=== PATIENT | female | born 1945 | race Caucasian/White ===

== ENCOUNTER 2017-09-29 17:41 | Inpatient (IN) ==
--- NOTE | 2017-09-29 18:54 | Emergency Department Note ---
Disposition Clinical Impression: Cellulitis Qualifiers: Site of cellulitis: extremity Site of cellulitis of extremity: lower extremity Laterality: left Qualified Code(s): L03.116 - Cellulitis of left lower limb Disposition: Admitted As Inpatient Condition: Fair Forms: ED Satisfaction Letter Time of Disposition: 18:57 Extremity Problem HPI - General Chief complaint: ED Extremity Problem,Nontraumatic Stated complaint: Toe infection Time Seen by Provider: 09/29/17 18:48 Source: patient Mode of arrival: ambulatory Limitations: no limitations Nursing Notes Reviewed: Yes Vital Signs Reviewed: Yes - History of Present Illness HPI Narrative: 72-year-old who comes in today with an infection in her left great toe. The patient was seen by Dr. Pereira who actually drained it got cultures sent her here for IV antibiotics. Pt Subjective Complaint: extremity pain Onset (ago): day(s) Consistency: constant Injury Location: left, lower extremity Pain Scale: 3 Quality: aching Radiation: none Improves with: nothing Worsens with: weight bearing Associated symptoms: Reports: other (Fever) Context: other - Related Data Home Medications Medication Instructions Recorded Confirmed Furosemide [Lasix] 40 mg PO DAILY 10/17/16 09/29/17 Gabapentin [Neurontin] 400 mg PO TID 10/17/16 09/29/17 Losartan/HCTZ [Hyzaar 50-12.5 1 each PO DAILY 10/17/16 09/29/17 Tablet] Propranolol HCl [Inderal LA] 160 mg PO DAILY 10/17/16 09/29/17 metFORMIN [Glucophage] 500 mg PO TID 10/17/16 09/29/17 Aspirin Enteric Coated [Aspirin EC] 325 mg PO DAILY 09/29/17 09/29/17 CloNIDine Patch [Catapres-TTS] 0.2 mg TD QWEEK 09/29/17 09/29/17 Diclofenac Sodium [Voltaren] 2 gm TP TID 09/29/17 09/29/17 Estrogens,Esterified [Menest] 0.3 mg PO DAILY 09/29/17 09/29/17 Glimepiride [Amaryl] 1 mg PO DAILY 09/29/17 09/29/17 HYDROcodone/Acet 5/325 mg [[place] 1 tab PO DAILY 09/29/17 09/29/17 5-325 mg] HydrOXYzine Pamoate [Vistaril] 25 - 50 mg PO Q6H PRN 09/29/17 09/29/17 Indapamide [Lozol] 2.5 mg PO DAILY 09/29/17 09/29/17 Levothyroxine [Synthroid] 150 mcg PO QAM 09/29/17 09/29/17 Morphine Sulfate SR (12 HR) [MS 30 mg PO DAILY 09/29/17 09/29/17 Contin] Omeprazole [PriLOSEC] 40 mg PO DAILY 09/29/17 09/29/17 Simvastatin [Zocor] 40 mg PO HS 09/29/17 09/29/17 Allergies Allergy/AdvReac Type Severity Reaction Status Date / Time ciprofloxacin [From Cipro] Allergy Swelling Verified 08/31/17 10:12 of Lip/Tongue/Throat lisinopril Allergy Hallucinati Verified 08/31/17 10:12 ng All systems ED: reviewed and negative except as stated. Constitutional: Reports: fever. Denies: chills, weakness, weight change Eyes: Denies: eye pain, eye discharge, vision change ENT ED: Denies: ear pain, throat pain, dental pain, hearing loss, epistaxis, congestion, dysphagia Cardiovascular: Denies: chest pain, palpitations, dyspnea on exertion, edema, syncope Respiratory: Denies: cough, dyspnea, wheezes, hemoptysis, stridor Gastrointestinal: Denies: abdominal pain, nausea, vomiting, diarrhea, constipation, hematemesis, melena, hematochezia Genitourinary: Denies: dysuria, frequency, hematuria, discharge Musculoskeletal: Reports: arthralgia. Denies: back pain, neck pain, myalgia Integumentary: Denies: rash, abrasion, lesions Neurological: Denies: headache, weakness, numbness, paresthesias, confusion, abnormal gait, vertigo Psychiatric: Denies: anxiety, depression, suicidal thoughts, homicidal thoughts , auditory hallucinations, visual hallucinations Endocrine: Denies: fatigue Hematological/Lymphatic: Denies: easy bleeding, easy bruising Allergic/Immunologic: Denies: facial swelling, urticaria Past Medical History - Past Medical History Medical history: Reports: diabetes, hyperlipidemia, hypertension, thyroid disease Psychiatric history: Reports: no psych history - Social History Smoking Status: Never smoker Smokeless Tobacco Status: No Alcohol use: Reports: none Drug use: Reports: none Physical Exam - General Limitations: no limitations General appearance: alert - Head Head exam: atraumatic, normocephalic, normal inspection - Eye Eye exam: Present: normal appearance, PERRL, EOMI - ENT ENT exam: normal exam, normal oropharynx, mucous membranes moist - Neck Neck exam: Present: normal inspection, full ROM, trachea midline - Chest Chest inspection: Present: normal inspection, symmetric chest wall rise - Respiratory Respiratory exam: Present: normal lung sounds bilaterally - Cardiovascular Cardiovascular exam: Present: regular rate, normal rhythm, normal heart sounds - Abdominal Exam Abdominal exam: Present: soft, Non-Tender. Absent: tenderness, distention, guarding, rebound, rigidity - Expanded Lower Extremity Exam Foot/toe exam: Present: tenderness, swelling, erythema Neurovascular/Tendon exam: Absent: pulse deficit - Back Exam Back exam: Present: normal inspection, full ROM. Absent: tenderness - Neurological Exam Neurological exam: Present: alert, oriented X3 - Psychiatric Psychiatric exam: Present: normal affect, normal mood - Skin Skin exam: Present: warm, dry, intact, normal color Course - Reevaluation(s) Reevaluation #1: 72-year-old who has diabetes came in with an infected left toe seen by podiatry who drained today and once in her admitted for antibiotics. Time: 18:55 - Consultations Consultation #1: Discussed with Dr. Pereira, admitted to the hospitalist give Zosyn. Time: 18:56 Consultation #2: Discussed with , admit. Time: 19:19 Consultation #3: Discussed of Zosyn dosing in light of her renal insufficiency, they recommend a 3.375 g of Zosyn for initial dose Time: 20:04 Vital Signs Temperature 100.2 F H 09/29/17 17:56 Pulse Rate 78 09/29/17 17:56 Respiratory Rate 18 09/29/17 17:56 Blood Pressure 122/62 09/29/17 17:56 O2 Sat by Pulse Oximetry 94 09/29/17 17:56 Temperature 100.2 F H 09/29/17 17:56 Pulse Rate 78 09/29/17 17:56 Respiratory Rate 18 09/29/17 17:56 Blood Pressure 122/62 09/29/17 17:56 O2 Sat by Pulse Oximetry 94 09/29/17 17:56 Oxygen Delivery Oxygen Delivery Room Air Extremity Problem, Nontraumati - Lab Data Result diagrams: 09/29/17 18:59 09/29/17 18:59 Lab Results 09/29/17 09/29/17 09/29/17 Range/Units 18:59 18:59 18:59 WBC 6.0 (4.3-11.1) K/mcL RBC 4.21 (3.82-4.97) M/mcL Hgb 11.9 (11.5-15.4) g/dL Hct 36.5 (35.3-44.9) % MCV 86.7 (83.0-100.0) fL MCH 28.3 (28.0-33.3) pg MCHC 32.6 (31.6-35.5) g/dL RDW 14.1 (11.5-14.5) % Plt Count 299 (140-400) K/mcL MPV 9.5 (9.4-12.4) fL Immature Gran % 0.2 (0-4) % Seg Neutrophils % 92.3 % Lymphocytes % 5.3 % Monocytes % 2.2 % Eosinophils % 0.0 % Basophils % 0.0 % Neutrophils # 5.5 (1.6-8.9) K/mcL Lymphocytes # 0.3 L (0.6-4.6) K/mcL Monocytes # 0.1 (0.0-1.3) K/mcL Eosinophils # 0.0 (0.0-0.6) K/mcL Basophils # 0.0 (0.0-0.2) K/mcL ESR 38 H (0-15) mm/hr Sodium 134 L (136-145) mEq/L Potassium 2.8 L (3.5-5.1) mEq/L Chloride 91 L (98-107) mEq/L Carbon Dioxide 30 H (23-29) mEq/L BUN 26 H (8-23) mg/dL Creatinine 1.58 H (0.60-1.20) mg/dL Est GFR ( Amer) 39 L (> 60) Est GFR (Non-Af Amer) 32 L (> 60) BUN/Creatinine Ratio 16 (6-26) Glucose 135 H (70-105) mg/dL Calculated Osmolality 285 (280-300) Calcium 8.6 (8.6-10.3) mg/dL
[2017-09-29] MEDS ORDERED: Piperacillin/Tazobactam 3.375 GM in 0.9 % Sodium Chloride Mini Bag 100 ML IVPB ONE (18:56)
[2017-09-29 19:32] LABS: Hematocrit 36.5 % (35.3-44.9); Hemoglobin 11.9 g/dL (11.5-15.4); Immature Granulocytes % 0.2 % (0-4); Lymphocytes # 0.3 K/mcL (0.6-4.6); Lymphocytes % 5.3 %; Mean Corpuscular HGB Conc 32.6 g/dL (31.6-35.5); Mean Corpuscular Hemoglobin 28.3 pg (28.0-33.3); Mean Corpuscular Volume 86.7 fL (83.0-100.0); Mean Platelet Volume 9.5 fL (9.4-12.4); Monocytes # 0.1 K/mcL (0.0-1.3); Monocytes % 2.2 %; Neutrophils # 5.5 K/mcL (1.6-8.9); Platelet Count 299 K/mcL (140-400); Red Blood Count 4.21 M/mcL (3.82-4.97); Red Cell Distribution Width 14.1 % (11.5-14.5); Segmented Neutrophils % 92.3 %
[2017-09-29 19:53] LABS: Calcium 8.6 mg/dL (8.6-10.3); Potassium 2.8 mEq/L (3.5-5.1)
[2017-09-29] MEDS ORDERED: 0.9 % Sodium Chloride 1,000 ML ONE (20:51)
[2017-09-29] MEDS ORDERED: Naloxone 0.4 MG/ML INJ IVP PRN (22:17)
[2017-09-29] MEDS ORDERED: Dextrose Gel 15 GM/37.5 ML TUBE PO PRN ×2 (22:23)
[2017-09-29] MEDS ORDERED: *HR* Dextrose 50 % in Water (Syg) 50 ML SYRINGE IVP PRN (22:23)
[2017-09-29] MEDS ORDERED: D5% in Water 1,000 ML IVC PRN (22:23)
--- NOTE | 2017-09-29 22:36 | Internal Med History&Physical ---
Date of Encounter: 09/29/17 Time of Encounter: 22:32 Internal Medicine - H&P: HPI Chief complaint: left great toe cellulitis. Admitted From: Emergency Dept Plans for Post Hospital Care: Home History of present illness: Ms. Jin is a 72 year old female who is a background history of for diabetes mellitus, hypertension, dyslipidemia, diabetic foot ulcer which is present for more than 2 years. Patient was evaluated by different laboratory courier and finally came to this health system with Dr. Pereira for further evaluation. She was evaluated by Dr. Pereira this afternoon and it was noted that her ulcer was persistently getting worse in terms of a reddish, serosanguineous discharge. Cultures were taken at [facility] and patient was sent to emergency room for inpatient admission for intravenous antibiotics. Patient complains that she has difficulty in walking with the wound on her left great toe which is progressively getting worse. Patient was also complaining of ongoing subjective fevers. Patient also complains that she has sharp pains which are bothering her for the past 3-4 days. Workup in the emergency room: Patient was evaluated in the emergency room. Basic labs were drawn. Her her vitals initially were within acceptable range but it was noted that patient was a hypotensive. Her blood pressure was 84/52. Patient received IV antibiotics/IV fluids. Reason for admission: Possible septic shock (fever, hypotension, target organ damage: Elevated creatinine, source for sepsis: Left foot ulcer) which responded to intravenous fluids/antibiotics. Past Med Surg Social Fam HX - Past Medical History Medical history: diabetes, hyperlipidemia, hypertension, thyroid disease Psychiatric history: no psych history - Past Surgical History Surgical History: orthopedic, other, other (Multiple surgeries on her left great toe.) - Social History Smoking Status: Never smoker Smokeless Tobacco Status: No Alcohol use: none Drug use: none Internal Medicine - H&P: Meds Furosemide [Lasix] 40 mg PO DAILY 10/17/16 [History] Gabapentin [Neurontin] 400 mg PO TID 10/17/16 [History] Losartan/HCTZ [Hyzaar 50-12.5 Tablet] 1 each PO DAILY 10/17/16 [History] Propranolol HCl [Inderal LA] 160 mg PO DAILY 10/17/16 [History] metFORMIN [Glucophage] 500 mg PO TID 10/17/16 [History] Aspirin Enteric Coated [Aspirin EC] 325 mg PO DAILY 09/29/17 [History] CloNIDine Patch [Catapres-TTS] 0.2 mg TD QWEEK 09/29/17 [History] Diclofenac Sodium [Voltaren] 2 gm TP TID 09/29/17 [History] Estrogens,Esterified [Menest] 0.3 mg PO DAILY 09/29/17 [History] Glimepiride [Amaryl] 1 mg PO DAILY 09/29/17 [History] HYDROcodone/Acet 5/325 mg [[place] 5-325 mg] 1 tab PO DAILY 09/29/17 [History] HydrOXYzine Pamoate [Vistaril] 25 - 50 mg PO Q6H PRN 09/29/17 [History] Indapamide [Lozol] 2.5 mg PO DAILY 09/29/17 [History] Levothyroxine [Synthroid] 150 mcg PO QAM 09/29/17 [History] Morphine Sulfate SR (12 HR) [MS Contin] 30 mg PO DAILY 09/29/17 [History] Omeprazole [PriLOSEC] 40 mg PO DAILY 09/29/17 [History] Simvastatin [Zocor] 40 mg PO HS 09/29/17 [History] 3 Allergy/AdvReac Type Severity Reaction Status Date / Time ciprofloxacin [From Cipro] Allergy Swelling Verified 08/31/17 10:12 of Lip/Tongue/Throat lisinopril Allergy Hallucinati Verified 08/31/17 10:12 ng All Systems PM: A 10-system review of systems was performed and is negative for pertinent findings except as documented above in the HPI. - Constitutional Constitutional: no chills, no fever(s), no night sweats - EENT Eyes: no change in vision, no discharge, no pain, no photophobia Ears: no ear discharge, no ear pain, no tinnitus Nose, mouth and throat: no dysphagia, no nasal discharge, no neck pain, no sore throat - Cardiovascular Cardiovascular ROS IM: no chest pain, no diaphoresis, no dyspnea, no lightheadedness, no palpitations, no syncope - Respiratory Respiratory: no cough, no dyspnea, no wheezing, no excessive phlegm production - Gastrointestinal Gastrointestinal: no abdominal pain, no diarrhea, no hematemesis, no hematochezia, no melena, no nausea, no vomiting - Genitourinary Genitourinary: no change in urinary stream, no dysuria, no flank pain, no hematuria - Musculoskeletal Musculoskeletal ROS IM: no numbness, no tingling Additional comments: Left foot ulcer - Integumentary Integumentary IM: no rash, no unusual bruising - Neurological Neurological ROS: no confusion, no convulsions, no focal weakness, no numbness, no tingling, no tremor(s) - Hematologic/Lymphatic Hematologic/Lymphatic: no easy bruising - Constitutional Vitals: Temp Pulse Resp BP Pulse Ox 98.3 F 71 12 104/57 93 09/29/17 21:12 09/29/17 21:47 09/29/17 21:47 09/29/17 21:47 09/29/17 21:47 General appearance: Present: A&O X 3, pleasant, no acute distress, answers questions appropriately - Head Head exam: Present: atraumatic, normocephalic - Eye Eye exam: Present: PERRL, conjuntiva pink, sclera anicteric Pupils: Present: PERRL - Neck Neck exam general surgery: Present: supple, trachea midline. Absent: lymphadenopathy - Respiratory Respiratory exam: Present: CTAB. Absent: accessory muscle use, rales, rhonchi, wheezes - Cardiovascular Cardiovascular exam: Present: RRR, +S1, +S2. Absent: diastolic murmur, gallop, rubs, systolic murmur - GI/Abdominal GI/Abdominal exam: Present: normal bowel sounds, soft, no peritoneal signs. Absent: distended, tenderness - Extremities Exam Extremities exam: Present: warm, radial pulses palpable and symmetrical. Absent : calf tenderness, cyanotic, pedal edema Additional comments: Left great toe ulcer which is well wrapped by laboratory courier. - Neurological Exam Neurological exam: Present: CN II-XII intact, oriented X3, no focal deficits. Absent: pronater drift, facial droop, speech deficit - Skin Skin exam: Present: dry, intact Internal Med - H&P Results - Labs CBC & Chem 7: 09/29/17 18:59 09/29/17 18:59 - Assessment and plan (1) Severe sepsis Current Visit: Yes Status: Acute Assessment and plan: Severe sepsis/septic shock: Possible source: Left great toe ulcer Multiple culture wound/blood: Done Lactic acid: Stat ordered from the inpatient unit and time lactic acid will be followed. Antibiotics: Vancomycin renally adjusted by pharmacy/Zosyn as per podiatry. Response to fluids/antibiotics: Noted that patient's blood pressure was 84/52 at 8:53 PM. I rechecked at around 945 and it was 104/57. Plan: Admit as inpatient. Continue IV fluids/antibiotics. Possible surgery tomorrow I personally spoke with Dr. Pereira and informed him all above. I examined this patient in 3 a 43 along with patient's nurse. I have discussed plan with the patient. Patient verbalized understanding of plan of care. (2) Cellulitis Current Visit: Yes Status: Acute Assessment and plan: Left great foot cellulitis. Previously wound culture positive for MRSA. We will start patient on vancomycin renally adjusted dose by pharmacy. Qualifiers: Site of cellulitis: extremity Site of cellulitis of extremity: lower extremity Laterality: left Qualified Code(s): L03.116 - Cellulitis of left lower limb (3) Diabetes mellitus Current Visit: Yes Status: Acute Assessment and plan: On to have a diabetes mellitus. We will continue insulin as per subcutaneous order set. 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 patient is on multiple antihypertensive medication. Patient was hypotensive in the emergency room. Likely secondary to sepsis/septic shock. At this point we will withhold all the antihypertensive medications including diuretics. Once patient's infection is under control gradually we can add antihypertensive medication. Qualifiers: Hypertension type: essential hypertension Qualified Code(s): I10 - Essential (primary) hypertension (5) Chronic kidney disease Current Visit: Yes Status: Acute Assessment and plan: Patient is known to have a chronic kidney disease. Noted that her urine is 1.5. This can be secondary to target organ damage: Possible etiology sepsis Likely source: Left great toe cellulitis We will continue aggressive IV fluid management. Qualifiers: Chronic kidney disease stage: stage 3 (moderate) Qualified Code(s): N18.3 - Chronic kidney disease, stage 3 (moderate) (6) Hypokalemia Current Visit: Yes Status: Acute Assessment and plan: Patient has a potassium of 2.8 This is likely secondary to diuretic induced hypokalemia. At this point we will give 10 mEq potassium by intravenous route. Thank you for dementia: Potassium by oral route. We will recheck labs tomorrow morning. (7) DVT prophylaxis Current Visit: Yes Status: Acute Assessment and plan: SCD Patient is not a candidate for pharmacological DVT prophylaxis as patient has a bleeding diabetic foot ulcer. Medical decision making: Patient has a moderate to severe risk of worsening in spite of being on appropriate medication due to the underlying complex comorbid conditions. - Time Spent With Patient Total time spent is greater than 50% in coordination of care (as documented) at patient's floor/unit and/or counseling patient:
[2017-09-29] MEDS ORDERED: Potassium Chloride Elixir 20 MEQ/15 ML UDC PO ONE (22:48)
[2017-09-29] MEDS ORDERED: Vancomycin (wt based) 1,000 MG VIAL IVPB SCH (23:00)
[2017-09-29] MEDS: 0.9 % Sodium Chloride 1,000 ML IVC SCH (23:30)
[2017-09-30 02:18] LABS: Basophils % 0.2 %; Eosinophils % 0.2 %; Hematocrit 30.8 % (35.3-44.9); Immature Granulocytes % 0.2 % (0-4); Lymphocytes # 0.5 K/mcL (0.6-4.6); Lymphocytes % 9.7 %; Mean Corpuscular HGB Conc 31.8 g/dL (31.6-35.5); Mean Corpuscular Hemoglobin 27.7 pg (28.0-33.3); Mean Platelet Volume 9.2 fL (9.4-12.4); Monocytes # 0.2 K/mcL (0.0-1.3); Monocytes % 4.7 %; Platelet Count 215 K/mcL (140-400); Red Blood Count 3.54 M/mcL (3.82-4.97)
[2017-09-30 02:19] LABS: Hemoglobin 9.8 g/dL (11.5-15.4)
[2017-09-30 02:34] LABS: Albumin/Globulin Ratio 1.2 (1.1-2.2); Bilirubin,Total 0.7 mg/dL (0.3-1.0); Calcium 7.8 mg/dL (8.6-10.3); Chol/HDL Ratio 2.8 (0-4.9); Globulin 2.6 g/dL (2.4-3.5); Magnesium 1.2 mg/dL (1.6-2.6); Phosphorous 3.3 mg/dL (2.7-4.5); Potassium 3.3 mEq/L (3.5-5.1); Total Protein 5.6 g/dL (6.4-8.9)
[2017-09-30] MEDS ORDERED: 0.9 % Sodium Chloride 1,000 ML IV ONE (03:55)
[2017-09-30] MEDS: Insulin LISPRO 300 UNITS/3 ML VIAL SQ SCH ×4 (07:58→22:33)
[2017-09-30 08:22] LABS: Estimated Average Glucose 143 mg/dl; Hemoglobin A1C 6.6 %
[2017-09-30] MEDS ORDERED: Piperacillin/Tazobactam 3.375 GM in 0.9 % Sodium Chloride Mini Bag 100 ML IVPB SCH (09:00)
[2017-09-30] MEDS: 0.9 % Sodium Chloride 1,000 ML IVC SCH (09:42)
[2017-09-30] MEDS: Aspirin Enteric Coated 325 MG Tablet PO SCH (09:46)
[2017-09-30] MEDS: *HR* Morphine Sulfate SR (12 HR) 30 MG TABLET.ER PO SCH (09:46)
[2017-09-30] MEDS: *HR* HYDROcodone/Acet 5/325 mg TABLET PO SCH (09:46)
--- NOTE | 2017-09-30 10:49 | Internal Med Progress Note ---
Date of Encounter: 09/30/17 Time of Encounter: 10:48 - Assessment and plan (1) Cellulitis Current Visit: Yes Status: Acute Assessment and plan: Severe sepsis secondary to Left great tore/foot cellulitis. Previously wound culture positive for MRSA. Continue vancomycin day #2 Stop Zosyn and start cefepime IV Podiatry consulted Continue IV fluids Qualifiers: Site of cellulitis: extremity Site of cellulitis of extremity: lower extremity Laterality: left Qualified Code(s): L03.116 - Cellulitis of left lower limb (2) Severe sepsis Current Visit: Yes Status: Acute Assessment and plan: Severe sepsis/septic shock: Possible source: Left great toe ulcer patient's blood pressure was 84/52 Dr. 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 (6) Hypokalemia Current Visit: Yes Status: Acute Assessment and plan: Replete as needed (7) Chronic kidney disease Current Visit: Yes Status: Acute Assessment and plan: Continue fluids. Qualifiers: Chronic kidney disease stage: stage 3 (moderate) Qualified Code(s): N18.3 - Chronic kidney disease, stage 3 (moderate) (8) Hypomagnesemia Current Visit: Yes Status: Acute - Time Spent With Patient Total time spent is greater than 50% in coordination of care (as documented) at patient's floor/unit and/or counseling patient: - Subjective Interval history: Minimal pain in the left foot, denies any chest pain, shortness of breath, no abdominal pain or dysuria - Constitutional Vitals: Temp Pulse Resp BP Pulse Ox 98.2 F 66 15 122/74 96 09/30/17 07:17 09/30/17 07:17 09/30/17 07:17 09/30/17 07:17 09/30/17 07:17 General appearance: Present: A&O X 3, pleasant, no acute distress, answers questions appropriately - Head Head exam: Present: atraumatic, normocephalic - Eye Eye exam: Present: PERRL, conjuntiva pink, sclera anicteric Pupils: Present: PERRL - Neck Neck exam general surgery: Present: supple, trachea midline. Absent: lymphadenopathy - Respiratory Respiratory exam: Present: CTAB. Absent: accessory muscle use, rales, rhonchi, wheezes - Cardiovascular Cardiovascular exam: Present: RRR, +S1, +S2. Absent: diastolic murmur, gallop, rubs, systolic murmur - GI/Abdominal GI/Abdominal exam: Present: normal bowel sounds, soft, no peritoneal signs. Absent: distended, tenderness - Extremities Exam Extremities exam: Present: warm, radial pulses palpable and symmetrical. Absent : calf tenderness, cyanotic, pedal edema - Neurological Exam Neurological exam: Present: CN II-XII intact, oriented X3, no focal deficits. Absent: pronater drift, facial droop, speech deficit - Skin Skin exam: Present: dry. Absent: intact Additional comments: small plantar ulceration underneath the first left toe, surrounded by erythema Internal Medicine: Result - Labs CBC & Chem 7: 09/30/17 01:59 09/30/17 01:59 Labs: Short CBC 09/30/17 Range/Units 01:59 WBC 4.7 (4.3-11.1) K/mcL Hgb 9.8 L D (11.5-15.4) g/dL Hct 30.8 L (35.3-44.9) % Plt Count 215 (140-400) K/mcL Neutrophils # 4.0 (1.6-8.9) K/mcL BMP 09/30/17 01:59 Sodium 136 Potassium 3.3 L Chloride 99 Carbon Dioxide 28 BUN 25 H Creatinine 1.45 H Glucose 112 H Calcium 7.8 L Liver Function 09/30/17 Range/Units 01:59 Total Bilirubin 0.7 (0.3-1.0) mg/dL AST 53 H (13-39) Units/L ALT 24 (7-52) Units/L Alkaline Phosphatase 122 H (34-104) Units/L Albumin 3.0 L (3.5-5.7) g/dL - VTE Documentation of Mechanical Device: Intermittent pneumatic compression device Consult Discharge Plan - Plan Referrals: Sheldon Lunsford [Primary Care Provider] -
[2017-09-30] MEDS: Cefepime HCl 1,000 MG in Water for inj. (sterile) 20 ML 10 ML IVP SCH ×2 (11:53→17:14)
[2017-09-30] MEDS ORDERED: hydrOXYzine pamoate 25 MG CAPSULE PO PRN (12:43)
--- NOTE | 2017-09-30 13:25 | Podiatry Consult Note ---
Date of Encounter: 09/30/17 Time of Encounter: 12:30 Assessment and Plan (1) Ulcer of left great toe due to diabetes mellitus Current visit: Yes Status: Acute Assessment: Full thickness diabetic ulceration to plantar aspect of left great toe, chronic Plan: Admitted for IV antibiotic therapy and fluids Medical management Dressing removed and toe assessed at bedside, cellulitis has improved since assessment. Edema and erythema have decreased Wound cleansed with saline and assessed. Scant serosang drainage noted at this time. Wound packed with mesalt, 4x4 applied and kerlix for padding. Patient will need BID dressing changes, cleanse with saline, cut mesalt packing strip in half, pack wound, apply 4x4 and kerlix Offload foot, patient has CAM boot at bedside, will need cam boot in place with any ambulation At this time xray is unchanged from previous and negative for any osseous involvement Minimal clinical indication of osteomyelitis WBC 6.0, ERS 38, temp 97.9 Continue current antibiotic therapy, vancomycin and zosyn, closely monitor renal function Wound and blood cultures have been obtained, once culture results are available patient may be discharged on appropriate PO antibiotic therapy Continue to monitor BP, temp, creatine, wbc, and I&O strict glucose control as to promote healing and prevent further complication Patient will need 1 week appointment in podiatry clinic 1 week after discharge. 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 Jin is a 72 year old female with PMH significant for HTN, DM and chronic ulceration of the left great toe. Ulceration has been ongoing x2 years with periods of healing and ulceration. Patient was seen yesterday in podiatry office per for follow up of toe ulceration. Erythema and edema of the foot was noted during office visit as well as increased drainage of ulceration. Cultures were obtained in office. Patient was sent to ED for further evaluation and IVATB. Patient was worked up in ED and admitted due to hypotensive episode 80/50. Patient is now hemodynamically stable s/p fluids and antibiotics. Patient is afebrile. Admit abc 98.1. Patient denies any fevers,chills, n/v or flu like symptoms. Patient denies any pain at this time. States she wants to go home. Dressing intact to toe, states it is the dressing placed. Patient was admitted and started on IV vancomycin and zosyn , history of MRSA Past Med Surg Social Fam HX - Past Medical History Medical history: diabetes, hyperlipidemia, hypertension, thyroid disease Psychiatric history: no psych history - Past Surgical History Surgical History: orthopedic, other, other (Multiple surgeries on her left great toe.) - Social History Smoking Status: Never smoker Smokeless Tobacco Status: No Alcohol use: none Drug use: none Medications and Allergies Furosemide [Lasix] 40 mg PO DAILY 10/17/16 [History] Gabapentin [Neurontin] 400 mg PO TID 10/17/16 [History] Losartan/HCTZ [Hyzaar 50-12.5 Tablet] 1 each PO DAILY 10/17/16 [History] Propranolol HCl [Inderal LA] 160 mg PO DAILY 10/17/16 [History] metFORMIN [Glucophage] 500 mg PO TID 10/17/16 [History] Aspirin Enteric Coated [Aspirin EC] 325 mg PO DAILY 09/29/17 [History] CloNIDine Patch [Catapres-TTS] 0.2 mg TD QWEEK 09/29/17 [History] Diclofenac Sodium [Voltaren] 2 gm TP TID 09/29/17 [History] Estrogens,Esterified [Menest] 0.3 mg PO DAILY 09/29/17 [History] Glimepiride [Amaryl] 1 mg PO DAILY 09/29/17 [History] HYDROcodone/Acet 5/325 mg [[place] 5-325 mg] 1 tab PO DAILY 09/29/17 [History] HydrOXYzine Pamoate [Vistaril] 25 - 50 mg PO Q6H PRN 09/29/17 [History] Indapamide [Lozol] 2.5 mg PO DAILY 09/29/17 [History] Levothyroxine [Synthroid] 150 mcg PO QAM 09/29/17 [History] Morphine Sulfate SR (12 HR) [MS Contin] 30 mg PO DAILY 09/29/17 [History] Omeprazole [PriLOSEC] 40 mg PO DAILY 09/29/17 [History] Simvastatin [Zocor] 40 mg PO HS 09/29/17 [History] 3 Allergy/AdvReac Type Severity Reaction Status Date / Time ciprofloxacin [From Cipro] Allergy Swelling Verified 08/31/17 10:12 of Lip/Tongue/Throat lisinopril Allergy Hallucinati Verified 08/31/17 10:12 ng All Systems Reviewed: The remainder of the systems were reviewed and are negative Physical Exam - Constitutional Vitals: Temp Pulse Resp BP Pulse Ox 97.9 F 69 16 147/86 94 09/30/17 11:39 09/30/17 11:39 09/30/17 11:39 09/30/17 11:39 09/30/17 11:39 Exam: General Examination: CONSTITUTIONAL: Alert, oriented, in no acute distress, non-toxic. EXTREMITIES: CFT 3 seconds all toes. Edema +1 and pedal pulses palpable. SKIN: Noted slight erythema along plantar aspect of left great toe, erythema was noted along dorsal aspect of toe extending onto dorsal aspect of foot yesterday, this has improved in appearance NEUROLOGIC: Minimal sensation to light/moderate touch due to diabetic neuropathy ULCERATION: There is a noted ulceration to dorsal aspect IP joint toe #1 left, chronic ulceration. [id number] with 0.6cm undermining. There is fibrous tissue noted within wound. No probe to bone. Scant serosang drainage noted. No malodor. Minimal warmth. Mild erythema surrounding wound. Mild edema surrounding wound and to toe. There is no ascending cellulitis. There is no lymphangitis. No palpable fluctuance to suggest any abscess formation. Results - Labs Result Diagrams: 09/30/17 01:59 09/30/17 01:59 Labs: Abnormal lab results RBC 3.54 M/mcL (3.82-4.97) L 09/30/17 01:59 Hgb 9.8 g/dL (11.5-15.4) L D 09/30/17 01:59 Hct 30.8 % (35.3-44.9) L 09/30/17 01:59 MCH 27.7 pg (28.0-33.3) L 09/30/17 01:59 MPV 9.2 fL (9.4-12.4) L 09/30/17 01:59 Lymphocytes # 0.5 K/mcL (0.6-4.6) L 09/30/17 01:59 ESR 38 mm/hr (0-15) H 09/29/17 18:59 Potassium 3.3 mEq/L (3.5-5.1) L 09/30/17 01:59 BUN 25 mg/dL (8-23) H 09/30/17 01:59 Creatinine 1.45 mg/dL (0.60-1.20) H 09/30/17 01:59 Est GFR ( Amer) 43 (> 60) L 09/30/17 01:59 Est GFR (Non-Af Amer) 36 (> 60) L 09/30/17 01:59 Glucose 112 mg/dL (70-105) H 09/30/17 01:59 POC Glucose 112 mg/dL (70-99) H 09/30/17 11:36 Hemoglobin A1c 6.6 % (-5.6) H 09/29/17 22:56 Calcium 7.8 mg/dL (8.6-10.3) L 09/30/17 01:59 Magnesium 1.2 mg/dL (1.6-2.6) L 09/30/17 01:59 AST 53 Units/L (13-39) H 09/30/17 01:59 Alkaline Phosphatase 122 Units/L (34-104) H 09/30/17 01:59 B-Natriuretic Peptide 100 pg/mL (Less than 100) H 09/30/17 01:59 Serum Total Protein 5.6 g/dL (6.4-8.9) L 09/30/17 01:59 Albumin 3.0 g/dL (3.5-5.7) L 09/30/17 01:59 Triglycerides 150 mg/dL (< 150) H 09/30/17 01:59 HDL Cholesterol 38 mg/dL (40-59) L 09/30/17 01:59 H & H 09/30/17 Range/Units 01:59 Hgb 9.8 L D (11.5-15.4) g/dL Hct 30.8 L (35.3-44.9) % All other labs normal. Consult Discharge Plan - Plan Referrals: Sheldon Lunsford [Primary Care Provider] -
[2017-09-30] MEDS: Magnesium Oxide 400 MG TABLET PO SCH ×2 (13:43→22:33)
[2017-09-30] MEDS: Propranolol LA (24 HR) 80 MG CAP.SA.24H PO SCH (13:43)
[2017-09-30] MEDS: Gabapentin 400 MG CAPSULE PO SCH ×2 (15:44→22:33)
[2017-09-30] MEDS: *HR* Heparin 5,000 UNIT/ML VIAL SQ SCH (22:34)
[2017-10-01] MEDS: *HR* Heparin 5,000 UNIT/ML VIAL SQ SCH ×3 (05:43→21:59)
[2017-10-01] MEDS: Cefepime HCl 1,000 MG in Water for inj. (sterile) 20 ML 10 ML IVP SCH ×2 (05:43→17:26)
[2017-10-01 05:55] LABS: Hematocrit 29.7 % (35.3-44.9); Hemoglobin 9.5 g/dL (11.5-15.4); Mean Corpuscular Hemoglobin 27.9 pg (28.0-33.3); Mean Corpuscular Volume 87.1 fL (83.0-100.0); Mean Platelet Volume 9.9 fL (9.4-12.4); Platelet Count 221 K/mcL (140-400); Red Blood Count 3.41 M/mcL (3.82-4.97); Red Cell Distribution Width 14.1 % (11.5-14.5)
[2017-10-01 06:17] LABS: BUN/Creatinine Ratio 16 (6-26); Blood Urea Nitrogen 15 mg/dL (8-23); Calcium 8.5 mg/dL (8.6-10.3); Carbon Dioxide 29 mEq/L (23-29); Chloride 108 mEq/L (98-107); Glucose 138 mg/dL (70-105); Osmolality,Calculated 293 (280-300); Potassium 3.6 mEq/L (3.5-5.1); Sodium 140 mEq/L (136-145); eGFR For African Americans > 60 (> 60); eGFR For Non-African Americans 59 (> 60)
[2017-10-01] MEDS: Propranolol LA (24 HR) 80 MG CAP.SA.24H PO SCH (07:53)
[2017-10-01] MEDS: Insulin LISPRO 300 UNITS/3 ML VIAL SQ SCH ×4 (07:53→21:59)
[2017-10-01] MEDS: Aspirin Enteric Coated 325 MG Tablet PO SCH (07:53)
[2017-10-01] MEDS: Magnesium Oxide 400 MG TABLET PO SCH ×2 (07:54→21:55)
[2017-10-01] MEDS: Gabapentin 400 MG CAPSULE PO SCH ×3 (07:54→21:55)
[2017-10-01] MEDS: *HR* HYDROcodone/Acet 5/325 mg TABLET PO SCH (07:54)
[2017-10-01] MEDS: *HR* Morphine Sulfate SR (12 HR) 30 MG TABLET.ER PO SCH (07:54)
--- NOTE | 2017-10-01 09:10 | Podiatry Progress Note ---
Date of Encounter: 10/01/17 Time of Encounter: 07:40 - Assessment and Plan (1) Ulcer of left great toe due to diabetes mellitus Current Visit: Yes Status: Acute Assessment: Full thickness diabetic ulceration to plantar aspect of left great toe, chronic Plan: Wound culture obtained in clinic showing ORGANISM 1: Proteus mirabilis P Quantity Abundant (>100 Colonies) P Sensitivity is included in the final report. P P ORGANISM 2: Staphylococcus aureus P Quantity Moderate (50-100 Colonies) P Sensitivity is included in the final report. Await sensitivity, patient may then be released on PO antibiotics Admitted for IV antibiotic therapy and fluids Medical management Patient continues improvement, medically she is stable and improved since admission Patient will need BID dressing changes, cleanse with saline, cut mesalt packing strip in half, pack wound, apply 4x4 and kerlix Patient states at bedside she believes she can do this at home, nurse states she will work with her, explained that if she does not feel like she can, we can have [facility] come change the dressing at her home. Verbalized understanding Offload foot, patient has CAM boot at bedside, will need cam boot in place with any ambulation At this time xray is unchanged from previous and negative for any osseous involvement Minimal clinical indication of osteomyelitis WBC 2.8, temp 97.8 BP 140s/70s Continue current antibiotic therapy, vancomycin and zosyn, closely monitor renal function Continue to monitor BP, temp, creatine, wbc, and I&O strict glucose control as to promote healing and prevent further complication Patient will need 1 week appointment in podiatry clinic 1 week after discharge. 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 Patient was admitted for IV anitbiotic therapy and hypotension. Patient is awaiting return of culture and sensitivity to direct antibiotic coverage. Patient rested well overnight. VS stable. Patient denies any fevers, chills, n/v or flu like symptoms. Patient denies any calf pain or SOB. Patient denies any pain to her toe or foot. Nurse at bedside state dressing has been changed as ordered and will work with patient on being able to change her own dressing. Objective - Vital Signs Vital Signs: Vital Signs Temp Pulse Resp BP Pulse Ox 10/01/17 08:21 93 10/01/17 06:46 97.9 F 67 16 147/73 93 10/01/17 04:26 97.9 F 65 15 138/68 97 09/30/17 23:05 97 09/30/17 20:15 98.1 F 66 16 111/55 97 09/30/17 15:33 98.0 F 68 16 118/72 95 09/30/17 11:39 97.9 F 69 16 147/86 94 Intake and Output 09/30/17 10/01/17 10/01/17 23:59 07:59 15:59 Intake Total 648 / 648 1130 / 1130 Balance 648 / 648 1130 / 1130 Intake: IV Fluids 648 / 648 1010 / 1010 KCl 10 MEQ In 0.9 % Sodium 638 / 638 750 / 750 Chloride 1,000 ML @ 100 mls/hr IVC .Q10H3M [facility] Rx#:[id number] Maxipime 1,000 MG In Water for inj. (sterile) 10 ML @ 150 mls/ hr IVP Q12HR [facility] Rx#:[id number] Vancocin 1,000 MG In 0.9 % 250 / 250 Sodium Chloride 250 ML @ 166. 667 mls/hr IVPB Q24H [facility] Rx#: [id number] Oral 120 / 120 Other: # Voids 0 Blood Glucose* 182 141 - Exam Exam: Patient is awake alert and oriented Foot warm tibia to toes Cap refill < 3 seconds Movement intact Sensation intact to moderate touch, patient is insensate to light touch Did not remove dressing during visit- nurse has been changing dressing as ordered No calf pain with manual compression. - Lab Result Diagrams: 10/01/17 05:21 10/01/17 05:21 Labs: Abnormal lab results WBC 2.8 K/mcL (4.3-11.1) L 10/01/17 05:21 RBC 3.41 M/mcL (3.82-4.97) L 10/01/17 05:21 Hgb 9.5 g/dL (11.5-15.4) L 10/01/17 05:21 Hct 29.7 % (35.3-44.9) L 10/01/17 05:21 MCH 27.9 pg (28.0-33.3) L 10/01/17 05:21 Lymphocytes # 0.5 K/mcL (0.6-4.6) L 09/30/17 01:59 ESR 38 mm/hr (0-15) H 09/29/17 18:59 Chloride 108 mEq/L (98-107) H 10/01/17 05:21 Est GFR (Non-Af Amer) 59 (> 60) L 10/01/17 05:21 Glucose 138 mg/dL (70-105) H 10/01/17 05:21 POC Glucose 141 mg/dL (70-99) H 10/01/17 06:49 Hemoglobin A1c 6.6 % (-5.6) H 09/29/17 22:56 Calcium 8.5 mg/dL (8.6-10.3) L 10/01/17 05:21 Magnesium 1.5 mg/dL (1.6-2.6) L 10/01/17 05:21 AST 53 Units/L (13-39) H 09/30/17 01:59 Alkaline Phosphatase 122 Units/L (34-104) H 09/30/17 01:59 B-Natriuretic Peptide 100 pg/mL (Less than 100) H 09/30/17 01:59 Serum Total Protein 5.6 g/dL (6.4-8.9) L 09/30/17 01:59 Albumin 3.0 g/dL (3.5-5.7) L 09/30/17 01:59 Triglycerides 150 mg/dL (< 150) H 09/30/17 01:59 HDL Cholesterol 38 mg/dL (40-59) L 09/30/17 01:59 - VTE Documentation of Mechanical Device: Intermittent pneumatic compression device Consult Discharge Plan - Plan Referrals: Sheldon Lunsford [Primary Care Provider] -
--- NOTE | 2017-10-01 11:43 | Internal Med Progress Note ---
Date of Encounter: 10/01/17 Time of Encounter: 11:40 - Assessment and plan (1) Cellulitis Current Visit: Yes Status: Acute Assessment and plan: Severe sepsis secondary to Left great tore/foot cellulitis. Previously wound culture positive for MRSA. Continue vancomycin day #3 Stopped Zosyn Continue cefepime IV day #2 Podiatry following Culture is growing Proteus and Staphylococcus aureus, sensitivity pending Qualifiers: Site of cellulitis: extremity Site of cellulitis of extremity: lower extremity Laterality: left Qualified Code(s): L03.116 - Cellulitis of left lower limb (2) Severe sepsis Current Visit: Yes Status: Acute Assessment and plan: Severe sepsis/septic shock: Possible source: Left great toe ulcer patient's blood pressure was 84/52 Dr. Pereira consulted (3) Diabetes mellitus Current Visit: Yes Status: Acute Assessment and plan: continue insulin sliding scale Qualifiers: Diabetes mellitus type: type 2 Diabetes mellitus intermediate insulin use: unspecified intermediate insulin use status Diabetes mellitus complication status : with unspecified complications Qualified Code(s): E11.8 - Type 2 diabetes mellitus with unspecified complications (4) Hypertension Current Visit: Yes Status: Acute Assessment and plan: Hold Lasix, Resume hydrochlorothiazide, clonidine, losartan, and indapamide Continue propanolol Qualifiers: Hypertension type: essential hypertension Qualified Code(s): I10 - Essential (primary) hypertension (5) DVT prophylaxis Current Visit: Yes Status: Acute Assessment and plan: SCD . (6) Hypokalemia Current Visit: Yes Status: Acute Assessment and plan: Replete as needed (7) Chronic kidney disease Current Visit: Yes Status: Acute Assessment and plan: He will failure in the setting of chronic kidney disease stage III Resolved Qualifiers: Chronic kidney disease stage: stage 3 (moderate) Qualified Code(s): N18.3 - Chronic kidney disease, stage 3 (moderate) (8) Hypomagnesemia Current Visit: Yes Status: Acute - Time Spent With Patient Total time spent is greater than 50% in coordination of care (as documented) at patient's floor/unit and/or counseling patient: - Subjective Interval history: No new complaints. Minimal pain in the left foot, denies any chest pain, shortness of breath, no abdominal pain or dysuria - Constitutional Vitals: Temp Pulse Resp BP Pulse Ox 98.1 F 72 14 159/77 95 10/01/17 11:06 10/01/17 11:06 10/01/17 11:06 10/01/17 11:06 10/01/17 11:06 General appearance: Present: A&O X 3, pleasant, no acute distress, answers questions appropriately Exam: - Head Head exam: Present: atraumatic, normocephalic - Eye Eye exam: Present: PERRL, conjuntiva pink, sclera anicteric Pupils: Present: PERRL - Neck Neck exam general surgery: Present: supple, trachea midline. Absent: lymphadenopathy - Respiratory Respiratory exam: Present: CTAB. Absent: accessory muscle use, rales, rhonchi, wheezes - Cardiovascular Cardiovascular exam: Present: RRR, +S1, +S2. Absent: diastolic murmur, gallop, rubs, systolic murmur - GI/Abdominal GI/Abdominal exam: Present: normal bowel sounds, soft, no peritoneal signs. Absent: distended, tenderness - Extremities Exam Extremities exam: Present: warm, radial pulses palpable and symmetrical. Absent : calf tenderness, cyanotic, pedal edema - Neurological Exam Neurological exam: Present: CN II-XII intact, oriented X3, no focal deficits. Absent: pronater drift, facial droop, speech deficit - Skin Skin exam: Present: dry. Absent: intact Additional comments: small plantar ulceration underneath the first left toe, surrounded by erythema Internal Medicine: Result - Labs CBC & Chem 7: 10/01/17 05:21 10/01/17 05:21 Labs: Short CBC 10/01/17 Range/Units 05:21 WBC 2.8 L (4.3-11.1) K/mcL Hgb 9.5 L (11.5-15.4) g/dL Hct 29.7 L (35.3-44.9) % Plt Count 221 (140-400) K/mcL [facility] 10/01/17 05:21 Sodium 140 Potassium 3.6 Chloride 108 H Carbon Dioxide 29 BUN 15 Creatinine 0.94 Glucose 138 H Calcium 8.5 L - VTE Documentation of Mechanical Device: Intermittent pneumatic compression device Consult Discharge Plan - Plan Referrals: Sheldon Lunsford [Primary Care Provider] -
[2017-10-01] MEDS ORDERED: CloNIDine Patch 0.2 MG PATCH (WEEKLY) TD SCH (11:45)
[2017-10-01] MEDS ORDERED: Aminoglycoside Consult 1 EACH MC ONE (11:59)
[2017-10-01] MEDS: Losartan/HCTZ 50-12.5 TABLET PO SCH (13:38)
[2017-10-01] MEDS ORDERED: OXYCODONE Oral CONC 10 MG/0.5 ML ORAL.SYG SL PRN (21:57)
[2017-10-02 06:24] LABS: Hemoglobin 9.6 g/dL (11.5-15.4); Mean Corpuscular Hemoglobin 27.6 pg (28.0-33.3); Mean Corpuscular Volume 86.2 fL (83.0-100.0); Mean Platelet Volume 9.8 fL (9.4-12.4); Platelet Count 244 K/mcL (140-400); Red Blood Count 3.48 M/mcL (3.82-4.97); Red Cell Distribution Width 14.1 % (11.5-14.5)
[2017-10-02] MEDS: Cefepime HCl 1,000 MG in Water for inj. (sterile) 20 ML 10 ML IVP SCH (06:26)
[2017-10-02] MEDS: *HR* Heparin 5,000 UNIT/ML VIAL SQ SCH ×3 (06:26→21:28)
[2017-10-02 06:44] LABS: BUN/Creatinine Ratio 14 (6-26); Blood Urea Nitrogen 14 mg/dL (8-23); Calcium 8.5 mg/dL (8.6-10.3); Carbon Dioxide 24 mEq/L (23-29); Chloride 107 mEq/L (98-107); Glucose 209 mg/dL (70-105); Osmolality,Calculated 293 (280-300); Potassium 3.9 mEq/L (3.5-5.1); Sodium 138 mEq/L (136-145); eGFR For African Americans > 60 (> 60); eGFR For Non-African Americans 55 (> 60)
[2017-10-02] MEDS: *HR* HYDROcodone/Acet 5/325 mg TABLET PO SCH (08:49)
[2017-10-02] MEDS: Propranolol LA (24 HR) 80 MG CAP.SA.24H PO SCH (08:49)
[2017-10-02] MEDS: Magnesium Oxide 400 MG TABLET PO SCH ×2 (08:49→21:27)
[2017-10-02] MEDS: Aspirin Enteric Coated 325 MG Tablet PO SCH (08:50)
[2017-10-02] MEDS: Gabapentin 400 MG CAPSULE PO SCH ×3 (08:50→21:27)
[2017-10-02] MEDS: *HR* Morphine Sulfate SR (12 HR) 30 MG TABLET.ER PO SCH (08:50)
[2017-10-02] MEDS: Losartan/HCTZ 50-12.5 TABLET PO SCH (08:50)
[2017-10-02] MEDS: Insulin LISPRO 300 UNITS/3 ML VIAL SQ SCH ×4 (08:51→21:19)
--- NOTE | 2017-10-02 09:40 | Internal Med Progress Note ---
Date of Encounter: 10/02/17 Time of Encounter: 09:37 - Assessment and plan (1) Cellulitis Current Visit: Yes Status: Acute Assessment and plan: Severe sepsis secondary to Left great tore/foot cellulitis. Previously wound culture positive for MRSA. Discontinued vancomycin at day #4 Stopped Zosyn Discontinue cefepime IV at day #3 Start Ancef Podiatry following Culture is growing Proteus and Staphylococcus aureus both sensitive to Ancef, there is a third gram-negative winnie growing If the patient continues to improve clinically may be discharged in the morning , we will adjust antibiotic therapy accordingly to the last/third bacteria growing Qualifiers: Site of cellulitis: extremity Site of cellulitis of extremity: lower extremity Laterality: left Qualified Code(s): L03.116 - Cellulitis of left lower limb (2) Severe sepsis Current Visit: Yes Status: Acute Assessment and plan: Severe sepsis/septic shock: Possible source: Left great toe ulcer patient's blood pressure was 84/52 Dr. 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 (6) Hypokalemia Current Visit: Yes Status: Acute Assessment and plan: Replete as needed (7) Chronic kidney disease Current Visit: Yes Status: Acute Assessment and plan: Acute renal failure in the setting of chronic kidney disease stage III Resolved Qualifiers: Chronic kidney disease stage: stage 3 (moderate) Qualified Code(s): N18.3 - Chronic kidney disease, stage 3 (moderate) (8) Hypomagnesemia Current Visit: Yes Status: Acute - Time Spent With Patient Total time spent is greater than 50% in coordination of care (as documented) at patient's floor/unit and/or counseling patient: - Subjective Interval history: Feeling better Minimal pain in the left foot, denies any chest pain, shortness of breath, no abdominal pain or dysuria - Constitutional Vitals: Temp Pulse Resp BP Pulse Ox 98.1 F 79 15 144/63 96 10/02/17 07:35 10/02/17 07:35 10/02/17 07:35 10/02/17 07:35 10/02/17 07:35 General appearance: Present: A&O X 3, pleasant, no acute distress, answers questions appropriately Exam: - Head Head exam: Present: atraumatic, normocephalic - Eye Eye exam: Present: PERRL, conjuntiva pink, sclera anicteric Pupils: Present: PERRL - Neck Neck exam general surgery: Present: supple, trachea midline. Absent: lymphadenopathy - Respiratory Respiratory exam: Present: CTAB. Absent: accessory muscle use, rales, rhonchi, wheezes - Cardiovascular Cardiovascular exam: Present: RRR, +S1, +S2. Absent: diastolic murmur, gallop, rubs, systolic murmur - GI/Abdominal GI/Abdominal exam: Present: normal bowel sounds, soft, no peritoneal signs. Absent: distended, tenderness - Extremities Exam Extremities exam: Present: warm, radial pulses palpable and symmetrical. Absent : calf tenderness, cyanotic, pedal edema - Neurological Exam Neurological exam: Present: CN II-XII intact, oriented X3, no focal deficits. Absent: pronater drift, facial droop, speech deficit - Skin Skin exam: Present: dry. Absent: intact Additional comments: small plantar ulceration underneath the first left toe, surrounded by erythema but improving Internal Medicine: Result - Labs CBC & Chem 7: 10/02/17 05:43 10/02/17 05:43 Labs: Short CBC 10/02/17 Range/Units 05:43 WBC 7.9 D (4.3-11.1) K/mcL Hgb 9.6 L (11.5-15.4) g/dL Hct 30.0 L (35.3-44.9) % Plt Count 244 (140-400) K/mcL [facility] 10/02/17 05:43 Sodium 138 Potassium 3.9 Chloride 107 Carbon Dioxide 24 BUN 14 Creatinine 0.99 Glucose 209 H Calcium 8.5 L - VTE Documentation of Mechanical Device: Intermittent pneumatic compression device Consult Discharge Plan - Plan Referrals: Sheldon Lunsford [Primary Care Provider] -
[2017-10-02] MEDS: ceFAZolin 1,000 MG in Water for inj. (sterile) 20 ML 10 ML IVP SCH ×2 (10:42→17:06)
[2017-10-02] MEDS: *HR* Glimepiride 2 MG TABLET PO SCH (10:44)
[2017-10-02] MEDS: *HR* Metformin 500 MG TABLET PO SCH ×3 (10:44→21:27)
--- NOTE | 2017-10-02 14:39 | Podiatry Progress Note ---
Date of Encounter: 10/02/17 Time of Encounter: 12:00 - Assessment and Plan (1) Ulcer of left great toe due to diabetes mellitus Status: Acute Assessment: Full thickness diabetic ulceration to plantar aspect of left great toe, chronic Plan: Wound culture obtained in clinic showing Proteus and Staphylococcus aureus both sensitive to Ancef, there is a third gram-negative winnie growing Await sensitivity, patient may then be released on PO antibiotics Internal medicine discontinued vancomycin at day #4 Stopped Zosyn Discontinue cefepime IV at day #3 Start Ancef Medical management appreciated Patient continues improvement, medically she is stable and improved since admission Patient will need BID dressing changes, cleanse with saline, cut mesalt packing strip in half, pack wound, apply 4x4 and kerlix Patient states at bedside she believes she can do this at home, nurse states she will work with her, explained that if she does not feel like she can, we can have [facility] come change the dressing at her home. Verbalized understanding Offload foot, patient has CAM boot at bedside, will need cam boot in place with any ambulation At this time xray is unchanged from previous and negative for any osseous involvement Minimal clinical indication of osteomyelitis WBC 7.8 afebrile VS stable Continue to monitor BP, temp, creatine, wbc, and I&O strict glucose control as to promote healing and prevent further complication Patient will need 1 week appointment in podiatry clinic 1 week after discharge. Dressing changed at bedside today, much improvement in appearance. No noted cellulitis. No drainage from wound. 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 Patient was admitted for IV anitbiotic therapy and hypotension. Patient is awaiting return of culture and sensitivity to direct antibiotic coverage. a 3rd gram negative winnie was reported growing overnight so patients discharge was held. Patient rested well overnight. VS stable. Patient denies any fevers, chills, n/v or flu like symptoms. Patient denies any calf pain or SOB. Patient denies any pain to her toe or foot. Patient states her foot feels much better. Objective - Vital Signs Vital Signs: Vital Signs Temp Pulse Resp BP Pulse Ox 10/02/17 11:41 97.8 F 71 16 135/58 94 10/02/17 07:35 98.1 F 79 15 144/63 96 10/02/17 04:15 98.7 F 86 14 146/54 94 10/01/17 22:18 96 10/01/17 19:31 97.8 F 68 14 155/67 96 10/01/17 15:23 98 F 68 15 169/81 95 Intake and Output 10/01/17 10/02/17 10/02/17 23:59 07:59 15:59 Intake Total 1255 / 1255 1615 / 1615 Output Total 0 / 0 300 / 300 Balance 1255 / 1255 1315 / 1315 Intake: IV Fluids 1015 / 1015 1015 / 1015 KCl 10 MEQ In 0.9 % Sodium 1005 / 1005 1005 / 1005 Chloride 1,000 ML @ 100 mls/hr IVC .Q10H3M POLO Rx#:[id number] Maxipime 1,000 MG In Water for inj. (sterile) 10 ML @ 150 mls/ hr IVP Q12HR POLO Rx#:[id number] Ancef 1,000 MG In Water for inj . (sterile) 10 ML @ 200 mls/hr IVP Q8HR POLO Rx#:[id number] Oral 240 / 240 0 / 0 600 / 600 Output: Urine 0 / 0 300 / 300 Other: Meal Dinner Breakfast Percent of Meal Consumed 75% 25% # Voids 0 Blood Glucose* 129 249 179 - Exam Exam: General Examination: CONSTITUTIONAL: Alert, oriented, in no acute distress, non-toxic. EXTREMITIES: CFT 3 seconds all toes. Edema +1 and pedal pulses palpable. SKIN: Erythema has completely resolved along plantar aspect of left great toe, erythema was noted along dorsal aspect of toe extending onto dorsal aspect of foot during previous exams, improvement noted NEUROLOGIC: Minimal sensation to light/moderate touch due to diabetic neuropathy ULCERATION: There is a continued ulceration to dorsal aspect IP joint toe #1 left, chronic ulceration. [id number] with 0.6cm undermining. There is fibrous tissue noted within wound. No probe to bone. no drainage noted. No malodor. Minimal warmth. minimal erythema surrounding wound. minimal edema surrounding wound and to toe. There is no ascending cellulitis. There is no lymphangitis. No palpable fluctuance to suggest any abscess formation. - Lab Result Diagrams: 10/03/17 06:36 10/03/17 06:36 Labs: Abnormal lab results RBC 3.48 M/mcL (3.82-4.97) L 10/02/17 05:43 Hgb 9.6 g/dL (11.5-15.4) L 10/02/17 05:43 Hct 30.0 % (35.3-44.9) L 10/02/17 05:43 MCH 27.6 pg (28.0-33.3) L 10/02/17 05:43 Lymphocytes # 0.5 K/mcL (0.6-4.6) L 09/30/17 01:59 ESR 38 mm/hr (0-15) H 09/29/17 18:59 Est GFR (Non-Af Amer) 55 (> 60) L 10/02/17 05:43 Glucose 209 mg/dL (70-105) H 10/02/17 05:43 POC Glucose 179 mg/dL (70-99) H 10/02/17 11:38 Hemoglobin A1c 6.6 % (-5.6) H 09/29/17 22:56 Calcium 8.5 mg/dL (8.6-10.3) L 10/02/17 05:43 Magnesium 1.5 mg/dL (1.6-2.6) L 10/01/17 05:21 AST 53 Units/L (13-39) H 09/30/17 01:59 Alkaline Phosphatase 122 Units/L (34-104) H 09/30/17 01:59 B-Natriuretic Peptide 100 pg/mL (Less than 100) H 09/30/17 01:59 Serum Total Protein 5.6 g/dL (6.4-8.9) L 09/30/17 01:59 Albumin 3.0 g/dL (3.5-5.7) L 09/30/17 01:59 Triglycerides 150 mg/dL (< 150) H 09/30/17 01:59 HDL Cholesterol 38 mg/dL (40-59) L 09/30/17 01:59 Vancomycin Trough 17 mcg/mL (5-10) H 10/01/17 22:14 Microbiology, Last 48 Hours 09/29/17 22:56 Blood Culture - Preliminary Peripheral Venipuncture No growth. 09/29/17 22:45 Blood Culture - Preliminary Peripheral Venipuncture No growth. - VTE Documentation of Mechanical Device: Intermittent pneumatic compression device Consult Discharge Plan - Plan Additional Instructions: Follow up with Primary care physician in 7 days. Follow up with podiatry in 2 weeks. Continue 5 more days of Levaquin. Resume all blood pressure medications Referrals: Sheldon Lunsford [Primary Care Provider] - Prescriptions: HYDROcodone/Acet 5/325 mg [[place] 5-325 mg] 1 tab PO TID PRN 5 Days #15 tablet PRN Reason: Pain Levofloxacin [Levaquin] 500 mg PO DAILY #5 tablet Magnesium Oxide [Mag-Ox] 400 mg PO DAILY #30 tablet
[2017-10-03] MEDS: ceFAZolin 1,000 MG in Water for inj. (sterile) 20 ML 10 ML IVP SCH (01:04)
[2017-10-03] MEDS: *HR* Heparin 5,000 UNIT/ML VIAL SQ SCH (06:08)
[2017-10-03 06:40] VITALS: BP 166/73
[2017-10-03 07:12] LABS: Hematocrit 30.7 % (35.3-44.9); Hemoglobin 9.9 g/dL (11.5-15.4); Mean Corpuscular HGB Conc 32.2 g/dL (31.6-35.5); Mean Corpuscular Hemoglobin 27.9 pg (28.0-33.3); Mean Corpuscular Volume 86.5 fL (83.0-100.0); Mean Platelet Volume 9.8 fL (9.4-12.4); Platelet Count 248 K/mcL (140-400); Red Blood Count 3.55 M/mcL (3.82-4.97); Red Cell Distribution Width 14.2 % (11.5-14.5)
[2017-10-03] MEDS ORDERED: Acetaminophen 325 MG TABLET PO ONE (07:29)
[2017-10-03 07:33] LABS: BUN/Creatinine Ratio 11 (6-26); Blood Urea Nitrogen 11 mg/dL (8-23); Calcium 8.9 mg/dL (8.6-10.3); Carbon Dioxide 27 mEq/L (23-29); Chloride 106 mEq/L (98-107); Glucose 132 mg/dL (70-105); Osmolality,Calculated 291 (280-300); Potassium 3.9 mEq/L (3.5-5.1); Sodium 140 mEq/L (136-145); eGFR For African Americans > 60 (> 60); eGFR For Non-African Americans 56 (> 60)
[2017-10-03] MEDS ORDERED: cefTRIAXone 1,000 MG in Water for inj. (sterile) 20 ML 10 ML IVP SCH (09:00)
[2017-10-03] MEDS ORDERED: Furosemide 40 MG TABLET PO SCH (09:00)
[2017-10-03] MEDS ORDERED: Levofloxacin 750 MG/150 ML 750 MG/150 ML BAG IVPB SCH (10:00)
[2017-10-03] MEDS: Aspirin Enteric Coated 325 MG Tablet PO SCH (10:05)
[2017-10-03] MEDS: *HR* Metformin 500 MG TABLET PO SCH (10:05)
[2017-10-03] MEDS: Magnesium Oxide 400 MG TABLET PO SCH (10:05)
[2017-10-03] MEDS: Propranolol LA (24 HR) 80 MG CAP.SA.24H PO SCH (10:06)
[2017-10-03] MEDS: *HR* Morphine Sulfate SR (12 HR) 30 MG TABLET.ER PO SCH (10:06)
[2017-10-03] MEDS: *HR* HYDROcodone/Acet 5/325 mg TABLET PO SCH (10:06)
[2017-10-03] MEDS: Losartan/HCTZ 50-12.5 TABLET PO SCH (10:06)
[2017-10-03] MEDS: *HR* Glimepiride 2 MG TABLET PO SCH (10:06)
[2017-10-03] MEDS: Gabapentin 400 MG CAPSULE PO SCH (10:06)
--- NOTE | 2017-10-03 10:17 | Discharge Summary ---
- NOTES TO OUTPATIENT PROVIDER Notes to Outpatient Provider: Follow up with Primary care physician in 7 days. Follow up with podiatry in 2 weeks. Continue 5 more days of Levaquin. Resume all blood pressure medications Orders not resulted at time of discharge: Pending orders 09/29/17 22:56 Culture,Blood,Additional [BC] Routine Date of Encounter: 10/03/17 Time of Encounter: 10:05 - Discharge Diagnosis (1) Cellulitis Priority: Primary Status: Acute Comments: Severe sepsis secondary to Left great toe/foot cellulitis. 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: unspecified alf insulin use status Diabetes mellitus complication status : with unspecified complications Qualified Code(s): E11.8 - Type 2 diabetes mellitus with unspecified complications (4) Hypertension Priority: Secondary Status: Acute Qualifiers: Hypertension type: essential hypertension Qualified Code(s): I10 - Essential (primary) hypertension (5) Chronic kidney disease Priority: Primary Status: Acute Comments: Acute renal failure in the setting of chronic kidney disease stage III Qualifiers: Chronic kidney disease stage: stage 3 (moderate) Qualified Code(s): N18.3 - Chronic kidney disease, stage 3 (moderate) (6) Hypomagnesemia Priority: Secondary Status: Acute (7) Hypokalemia Priority: Secondary Status: Acute (8) DVT prophylaxis Priority: Secondary Status: Acute Hospital course: Ms. Jin is a 72 year old female with a PMHx of diabetes mellitus , hypertension , dyslipidemia, diabetic foot ulcers present for more than 2 years. Patient was evaluated by different podiatrists and finally came to this health system with Dr. Pereira for further evaluation. She was evaluated by Dr. Pereira and it was noted that her ulcer was persistently getting worse in terms of a reddness, serosanguineous discharge. Cultures were taken at Dr. Rainey clinic and patient was sent to emergency room for inpatient admission for intravenous antibiotics. Complained that she had difficulty in walking with the wound on her left great toe which was progressively getting worse. Patient was also complaining of ongoing subjective fevers. She had sharp pains which are bothering her for the past 3-4 days prior to admission . Was a hypotensive. Her blood pressure was 84/52. Patient received IV antibiotics/IV fluids. Possible septic shock (fever, hypotension, target organ damage: Elevated creatinine, source for sepsis: Left foot ulcer) which responded to intravenous fluids/antibiotics. Was diagnosed with Severe sepsis secondary to Left great tore/foot cellulitis. Previous wound culture positive for MRSA ( in the past). Discontinued vancomycin at day #4 Stopped Zosyn as well Discontinued cefepime IV at day #3, was switched to Rocephin Lasix,propanolol ,hydrochlorothiazide, clonidine, losartan, and indapamide were initially held and resumed progressively. Podiatry followed the case Culture igrew Proteus , Staphylococcus aureus ad the third bacterium identified was finally pseudomonas. Will be discaharged on Levaquin - Time Spent with Patient Total time spent providing and/or coordinating discharge services: Greater than 30 minutes (40 min) - Discharge Medications Prescriptions: HYDROcodone/Acet 5/325 mg [[place] 5-325 mg] 1 tab PO TID PRN 5 Days #15 tablet PRN Reason: Pain Levofloxacin [Levaquin] 500 mg PO DAILY #5 tablet Magnesium Oxide [Mag-Ox] 400 mg PO DAILY #30 tablet Home Medications: Furosemide [Lasix] 40 mg PO DAILY 10/17/16 [History] Gabapentin [Neurontin] 400 mg PO TID 10/17/16 [History] Losartan/HCTZ [Hyzaar 50-12.5 Tablet] 1 each PO DAILY 10/17/16 [History] Propranolol HCl [Inderal LA] 160 mg PO DAILY 10/17/16 [History] metFORMIN [Glucophage] 500 mg PO TID 10/17/16 [History] Aspirin Enteric Coated [Aspirin EC] 325 mg PO DAILY 09/29/17 [History] CloNIDine Patch [Catapres-Tts] 0.2 mg TD QWEEK 09/29/17 [History] Diclofenac Sodium [Voltaren] 2 gm TP TID 09/29/17 [History] Estrogens,Esterified [Menest] 0.3 mg PO DAILY 09/29/17 [History] Glimepiride [Amaryl] 1 mg PO DAILY 09/29/17 [History] HydrOXYzine Pamoate [Vistaril] 25 - 50 mg PO Q6H PRN 09/29/17 [History] Indapamide [Lozol] 2.5 mg PO DAILY 09/29/17 [History] Levothyroxine [Synthroid] 150 mcg PO QAM 09/29/17 [History] Morphine Sulfate SR (12 HR) [MS Contin] 30 mg PO DAILY 09/29/17 [History] Omeprazole [PriLOSEC] 40 mg PO DAILY 09/29/17 [History] Simvastatin [Zocor] 40 mg PO HS 09/29/17 [History] HYDROcodone/Acet 5/325 mg [[place] 5-325 mg] 1 tab PO TID PRN 5 Days #15 tablet [Rx] Levofloxacin [Levaquin] 500 mg PO DAILY #5 tablet 10/03/17 [Rx] Magnesium Oxide [Mag-Ox] 400 mg PO DAILY #30 tablet 10/03/17 [Rx] Allergies/Adverse Reactions: 3 Allergy/AdvReac Type Severity Reaction Status Date / Time ciprofloxacin [From Cipro] Allergy Swelling Verified 08/31/17 10:12 of Lip/Tongue/Throat lisinopril Allergy Hallucinati Verified 08/31/17 10:12 ng Date of admission: 09/29/17 22:17 Primary care physician: Sheldon Lunsford Consults: 09/29/17 22:44 Consult to Nutrition [CONS] Routine Comment: MST 3. Lost 15 Lbs in past 3 months Consulting Provider: NUTRITION Reason for Dietary Consult: MST Score - Constitutional Vitals: Temp Pulse Resp BP Pulse Ox 97.6 F 67 16 166/73 94 10/03/17 06:39 10/03/17 06:39 10/03/17 06:39 10/03/17 06:39 10/03/17 06:39 General appearance: Present: A&O X 3, pleasant, no acute distress, answers questions appropriately Exam: - Head Head exam: Present: atraumatic, normocephalic - Eye Eye exam: Present: PERRL, conjuntiva pink, sclera anicteric Pupils: Present: PERRL - Neck Neck exam general surgery: Present: supple, trachea midline. Absent: lymphadenopathy - Respiratory Respiratory exam: Present: CTAB. Absent: accessory muscle use, rales, rhonchi, wheezes - Cardiovascular Cardiovascular exam: Present: RRR, +S1, +S2. Absent: diastolic murmur, gallop, rubs, systolic murmur - GI/Abdominal GI/Abdominal exam: Present: normal bowel sounds, soft, no peritoneal signs. Absent: distended, tenderness - Extremities Exam Extremities exam: Present: warm, radial pulses palpable and symmetrical. Absent : calf tenderness, cyanotic, pedal edema - Neurological Exam Neurological exam: Present: CN II-XII intact, oriented X3, no focal deficits. Absent: pronater drift, facial droop, speech deficit - Skin Skin exam: Present: dry. Absent: intact Additional comments: small plantar ulceration underneath the first left toe, surrounded by erythema but improving - Patient Status Disposition: Home, Self-Care Condition: Good Overall status at discharge: patient is progressing back to baseline - Discharge Instructions Follow Up With: Sheldon Lunsford [Primary Care Provider] - Additional Instructions: Follow up with Primary care physician in 7 days. Follow up with podiatry in 2 weeks. Continue 5 more days of Levaquin. Resume all blood pressure medications - Diet and Activity Activity: increase activity as tolerated Diet: diabetic diet - VTE Documentation of Mechanical Device: Intermittent pneumatic compression device
[2017-10-03] MEDS: Insulin LISPRO 300 UNITS/3 ML VIAL SQ SCH (12:45)
== END 2017-10-03 12:00 | disposition home or self-care (01) | DRG 871 ==
LOC: EMEROO 17:41 → 3ANU 17:41
PROVIDERS: ADMIT Internal Medicine; ATTEND Internal Medicine

== ENCOUNTER 2020-08-10 04:05 | Inpatient (IN) ==
[2020-08-10] MEDS ORDERED: Naloxone 0.4 MG/ML INJ IVP PRN (08:10)
[2020-08-10] MEDS ORDERED: D5% in Water 1,000 ML IVC PRN (08:13)
[2020-08-10] MEDS ORDERED: *HR* Dextrose 50 % in Water (Vial) 50 ML VIAL IVP PRN (08:13)
[2020-08-10] MEDS ORDERED: Dextrose Gel 15 GM/37.5 ML TUBE PO PRN (08:13)
[2020-08-10] MEDS ORDERED: Saline Nasal Spray 44 ML BOTTLE NS PRN (08:14)
[2020-08-10] MEDS ORDERED: Isovue-370 500 ML BOTTLE IVP ONE (08:15)
[2020-08-10] MEDS ORDERED: Perflutren Lipid Microsphere 1.3 ML in 0.9 % Sodium Chloride 8.7 ML IVP PRN (08:16)
[2020-08-10] MEDS: Dexamethasone 4 MG/ML VIAL IVP SCH (08:49)
[2020-08-10] MEDS: Dextrose Gel 15 GM/37.5 ML TUBE PO PRN ×2 (08:50→10:35)
[2020-08-10] MEDS: Multivit/Ca/Min/Fe/FA 1 TAB TABLET PO SCH (08:50)
[2020-08-10] MEDS: Furosemide 40 MG/4 ML VIAL IVP SCH (08:50)
[2020-08-10 09:32] LABS: Phosphorous 2.4 mg/dL (2.7-4.5)
[2020-08-10 09:34] LABS: Lactate Dehydrogenase 266 Units/L (140-271)
[2020-08-10 09:35] LABS: Troponin I < 0.03 ng/mL (< 0.04)
[2020-08-10 09:54] LABS: Ferritin 261 ng/mL (10-120)
[2020-08-10] MEDS: Ipratropium 1 PUFF INHALER IH SCH ×5 (10:10→23:12)
[2020-08-10 10:16] LABS: ABG Base Excess 4 mEq/L (-2 to 3); ABG HCO3 29 mEq/L (21-27); ABG Oxygen Saturation 93 % (95-98); ABG PCO2 47 mmHg (35-45); ABG PH 7.41 pH Units (7.32-7.45); ABG PO2 68 mmHg (85-104); ABG TCO2 31 mEq/L (20-26)
[2020-08-10] MEDS: Artificial Tears SOLN 15 ML BOTTLE BOTH EYES SCH ×2 (10:35→20:39)
[2020-08-10 11:31] LABS: C-Reactive Protein 283 mg/L (Less than 10)
[2020-08-10 12:22] LABS: Estimated Average Glucose 128 mg/dl; Hemoglobin A1C 6.1 %
[2020-08-10 12:44] LABS: BUN/Creatinine Ratio 23 (6-26); Blood Urea Nitrogen 33 mg/dL (8-23); Calcium 8.6 mg/dL (8.6-10.3); Carbon Dioxide 27 mEq/L (23-29); Chloride 92 mEq/L (98-107); Glucose 33 mg/dL (70-105); Osmolality,Calculated 274 (280-300); Potassium 3.9 mEq/L (3.5-5.1); Sodium 130 mEq/L (136-145); eGFR For African Americans 44 (> 60); eGFR For Non-African Americans 37 (> 60)
[2020-08-10] MEDS ORDERED: *HR* Heparin 5,000 UNIT/ML VIAL SQ SCH (14:00)
[2020-08-10] MEDS ORDERED: cefTRIAXone 1,000 MG in 0.9 % Sodium Chloride Mini Bag 100 ML IVPB SCH (14:00)
[2020-08-10 14:32] LABS: Hemoglobin 9.3 g/dL (11.5-15.4); Immature Granulocytes % 0.9 % (0-4); Lymphocytes # 0.6 K/mcL (0.6-4.6); Lymphocytes % 8.9 %; Mean Corpuscular HGB Conc 32.1 g/dL (31.6-35.5); Mean Corpuscular Hemoglobin 28.4 pg (28.0-33.3); Mean Corpuscular Volume 88.4 fL (83.0-100.0); Mean Platelet Volume 9.1 fL (9.4-12.4); Monocytes # 0.3 K/mcL (0.0-1.3); Monocytes % 3.9 %; Neutrophils # 5.6 K/mcL (1.6-8.9); Platelet Count 300 K/mcL (140-400); Red Blood Count 3.28 M/mcL (3.82-4.97); Red Cell Distribution Width 14.6 % (11.5-14.5); Segmented Neutrophils % 86.3 %; White Blood Count 6.5 K/mcL (4.3-11.1)
[2020-08-10] MEDS ORDERED: *HR* Heparin 5,000 UNIT/ML VIAL IVP PRN ×2 (17:19)
[2020-08-10] MEDS: cefTRIAXone 1,000 MG in Water for inj. (sterile) 10 ML IVP SCH (18:02)
[2020-08-10] MEDS: Azithromycin 250 MG TABLET PO SCH (18:03)
[2020-08-10 18:12] LABS: Heparin anti-factor XA UFH < 0.04 IU/mL (0.30-0.70)
[2020-08-10 18:13] LABS: INR 1.2; Prothrombin Time 13.4 Seconds (9.4-12.1)
[2020-08-10] MEDS: Heparin 25,000UNIT/250ML 1/2NS 25,000 UNIT/250 ML IV.SOLN IVC SCH ×2 (18:25→21:49)
[2020-08-11 00:54] LABS: Basophils % 0.2 %; Hematocrit 28.5 % (35.3-44.9); Hemoglobin 9.3 g/dL (11.5-15.4); Immature Granulocytes % 0.9 % (0-4); Lymphocytes # 0.6 K/mcL (0.6-4.6); Lymphocytes % 10.7 %; Mean Corpuscular HGB Conc 32.6 g/dL (31.6-35.5); Mean Corpuscular Volume 85.8 fL (83.0-100.0); Mean Platelet Volume 9.4 fL (9.4-12.4); Monocytes # 0.3 K/mcL (0.0-1.3); Monocytes % 4.6 %; Neutrophils # 4.5 K/mcL (1.6-8.9); Platelet Count 345 K/mcL (140-400); Red Blood Count 3.32 M/mcL (3.82-4.97); Red Cell Distribution Width 14.5 % (11.5-14.5); Segmented Neutrophils % 83.6 %; White Blood Count 5.4 K/mcL (4.3-11.1)
[2020-08-11 01:17] LABS: Albumin 2.8 g/dL (3.5-5.7); Albumin/Globulin Ratio 0.8 (1.1-2.2); Bilirubin,Total 0.4 mg/dL (0.3-1.0); Calcium 8.9 mg/dL (8.6-10.3); Globulin 3.3 g/dL (2.4-3.5); Phosphorous 3.8 mg/dL (2.7-4.5); Potassium 4.1 mEq/L (3.5-5.1); Total Protein 6.1 g/dL (6.4-8.9)
[2020-08-11 01:18] LABS: % Iron Saturation 7 % (15-50); C-Reactive Protein 237 mg/L (Less than 10); Iron 14 mcg/dL (50-170); Lactate Dehydrogenase 258 Units/L (140-271); Transferrin 138 mg/dL (203-362)
[2020-08-11 01:37] LABS: Ferritin 262 ng/mL (10-120)
[2020-08-11] MEDS ORDERED: ALPRAZolam 0.5 MG TABLET PO ONE (01:37)
[2020-08-11] MEDS: *HR* HYDROcodone/Acet 5/325 mg TABLET PO PRN ×4 (01:42→22:58)
[2020-08-11 01:45] LABS: Folate > 22.3 ng/mL (3.0-16.0); Vitamin B12 387 pg/mL (250-1100)
[2020-08-11] MEDS: Ipratropium 1 PUFF INHALER IH SCH ×6 (03:15→23:22)
[2020-08-11] MEDS ORDERED: Iron Sucrose Complex 400 MG in 0.9 % Sodium Chloride 250 ML IVPB ONE (07:30)
[2020-08-11] MEDS: Azithromycin 250 MG TABLET PO SCH (08:26)
[2020-08-11] MEDS: cefTRIAXone 1,000 MG in Water for inj. (sterile) 10 ML IVP SCH (08:26)
[2020-08-11] MEDS: Multivit/Ca/Min/Fe/FA 1 TAB TABLET PO SCH (08:26)
[2020-08-11] MEDS: Furosemide 40 MG/4 ML VIAL IVP SCH (08:28)
[2020-08-11] MEDS: Dexamethasone 4 MG/ML VIAL IVP SCH (08:28)
[2020-08-11] MEDS: Insulin LISPRO 300 UNITS/3 ML VIAL SUBQ SCH ×5 (08:30→21:10)
[2020-08-11] MEDS: Artificial Tears SOLN 15 ML BOTTLE BOTH EYES SCH ×2 (10:22→22:24)
[2020-08-11 13:42] LABS: Sodium, Urine 59.4 mEq/L
[2020-08-11] MEDS ORDERED: Dexamethasone Sodium Phos/PF 10 MG/ML VIAL IVP ONE (14:30)
[2020-08-11] MEDS ORDERED: Saliva Stimulant 44.3ml BOTTLE PO PRN (15:37)
[2020-08-11 16:57] LABS: ABG Base Excess 11 mEq/L (-2 to 3); ABG HCO3 34 mEq/L (21-27); ABG Oxygen Saturation 95 % (95-98); ABG PCO2 36 mmHg (35-45); ABG PH 7.58 pH Units (7.32-7.45); ABG PO2 66 mmHg (85-104); ABG TCO2 35 mEq/L (20-26); Blood Gas Modality HFOT; Blood Gas VT 50 cc
[2020-08-11] MEDS ORDERED: Insulin LISPRO 300 UNITS/3 ML VIAL SUBQ SCH (17:00)
[2020-08-11] MEDS ORDERED: Remdesivir 200 MG in 0.9 % Sodium Chloride 100 ML IVPB ONE (17:00)
[2020-08-11] MEDS ORDERED: Insulin DETEMIR 100 UNIT/ML X5UNITS SUBQ SCH (21:00)
[2020-08-11] MEDS: Insulin DETEMIR 100 UNIT/ML X5UNITS SUBQ SCH (21:02)
[2020-08-11] MEDS: Chlorhexidine Rinse 15 ML MOUTHWASH MM SCH (21:02)
[2020-08-11] MEDS: Melatonin 3 MG TABLET PO PRN (22:58)
[2020-08-11] MEDS: *HR* LORazepam 0.5 MG TABLET PO PRN (22:58)
[2020-08-12] MEDS: Ipratropium 1 PUFF INHALER IH SCH ×6 (03:38→23:33)
[2020-08-12] MEDS: *HR* HYDROcodone/Acet 5/325 mg TABLET PO PRN ×2 (04:50→11:00)
[2020-08-12] MEDS: Insulin LISPRO 300 UNITS/3 ML VIAL SUBQ SCH ×7 (08:20→19:38)
[2020-08-12] MEDS: Multivit/Ca/Min/Fe/FA 1 TAB TABLET PO SCH (08:21)
[2020-08-12] MEDS: Artificial Tears SOLN 15 ML BOTTLE BOTH EYES SCH ×2 (08:23→19:37)
[2020-08-12] MEDS: Propranolol LA (24 HR) 80 MG CAP.SA.24H PO SCH (08:24)
[2020-08-12] MEDS: Azithromycin 250 MG TABLET PO SCH (08:24)
[2020-08-12] MEDS: Chlorhexidine Rinse 15 ML MOUTHWASH MM SCH ×2 (08:24→19:36)
[2020-08-12] MEDS: cefTRIAXone 1,000 MG in Water for inj. (sterile) 10 ML IVP SCH (08:25)
[2020-08-12] MEDS: Furosemide 40 MG/4 ML VIAL IVP SCH (08:26)
[2020-08-12] MEDS: Dexamethasone Sodium Phos/PF 10 MG/ML VIAL IVP SCH (08:27)
[2020-08-12 09:44] LABS: Basophils % 0.1 %; Hematocrit 32.6 % (35.3-44.9); Hemoglobin 10.7 g/dL (11.5-15.4); Immature Granulocytes % 0.9 % (0-4); Lymphocytes # 0.7 K/mcL (0.6-4.6); Lymphocytes % 5.3 %; Mean Corpuscular HGB Conc 32.8 g/dL (31.6-35.5); Mean Corpuscular Hemoglobin 27.6 pg (28.0-33.3); Mean Corpuscular Volume 84.2 fL (83.0-100.0); Mean Platelet Volume 8.9 fL (9.4-12.4); Monocytes # 0.7 K/mcL (0.0-1.3); Monocytes % 4.7 %; Neutrophils # 12.3 K/mcL (1.6-8.9); Nucleated Red Blood Cells 0.1 /100 WBC (0); Platelet Count 512 K/mcL (140-400); Red Blood Count 3.87 M/mcL (3.82-4.97); Red Cell Distribution Width 14.2 % (11.5-14.5)
[2020-08-12 09:46] LABS: White Blood Count 13.8 K/mcL (4.3-11.1)
[2020-08-12 09:47] LABS: Heparin anti-factor XA UFH 0.74 IU/mL (0.30-0.70)
[2020-08-12 09:48] LABS: INR 1.1; Prothrombin Time 12.7 Seconds (9.4-12.1)
[2020-08-12 10:01] LABS: Albumin 3.1 g/dL (3.5-5.7); Albumin/Globulin Ratio 0.8 (1.1-2.2); Bilirubin,Total 0.4 mg/dL (0.3-1.0); Calcium 9.9 mg/dL (8.6-10.3); Globulin 3.8 g/dL (2.4-3.5); Magnesium 1.9 mg/dL (1.6-2.6); Phosphorous 2.9 mg/dL (2.7-4.5); Potassium 3.3 mEq/L (3.5-5.1); Total Protein 6.9 g/dL (6.4-8.9)
[2020-08-12 10:02] LABS: C-Reactive Protein 116 mg/L (Less than 10); Lactate Dehydrogenase 316 Units/L (140-271)
[2020-08-12 10:20] LABS: Ferritin 744 ng/mL (10-120)
[2020-08-12] MEDS: Gabapentin 300 MG CAPSULE PO SCH ×3 (11:37→19:36)
[2020-08-12] MEDS: Remdesivir 100 MG in 0.9 % Sodium Chloride 100 ML IVPB SCH (17:27)
[2020-08-12] MEDS: Insulin DETEMIR 100 UNIT/ML X5UNITS SUBQ SCH (19:36)
[2020-08-13] MEDS: Heparin 25,000UNIT/250ML 1/2NS 25,000 UNIT/250 ML IV.SOLN IVC SCH ×2 (00:55→12:25)
[2020-08-13] MEDS: Acetaminophen 325 MG TABLET PO PRN (01:09)
[2020-08-13 01:33] LABS: Basophils % 0.2 %; Hematocrit 31.4 % (35.3-44.9); Hemoglobin 10.1 g/dL (11.5-15.4); Lymphocytes # 1.1 K/mcL (0.6-4.6); Lymphocytes % 8.8 %; Mean Corpuscular HGB Conc 32.2 g/dL (31.6-35.5); Mean Corpuscular Hemoglobin 27.7 pg (28.0-33.3); Mean Corpuscular Volume 86.3 fL (83.0-100.0); Mean Platelet Volume 9.1 fL (9.4-12.4); Monocytes # 1.1 K/mcL (0.0-1.3); Monocytes % 8.6 %; Neutrophils # 10.2 K/mcL (1.6-8.9); Platelet Count 509 K/mcL (140-400); Red Blood Count 3.64 M/mcL (3.82-4.97); Red Cell Distribution Width 14.2 % (11.5-14.5); Segmented Neutrophils % 81.4 %; White Blood Count 12.5 K/mcL (4.3-11.1)
[2020-08-13 01:36] LABS: Heparin anti-factor XA UFH 0.35 IU/mL (0.30-0.70); INR 1.1; Prothrombin Time 12.8 Seconds (9.4-12.1)
[2020-08-13 01:56] LABS: Albumin 2.8 g/dL (3.5-5.7); Albumin/Globulin Ratio 0.8 (1.1-2.2); Bilirubin,Total 0.4 mg/dL (0.3-1.0); Calcium 9.9 mg/dL (8.6-10.3); Globulin 3.5 g/dL (2.4-3.5); Magnesium 2.3 mg/dL (1.6-2.6); Phosphorous 3.1 mg/dL (2.7-4.5); Potassium 3.9 mEq/L (3.5-5.1); Total Protein 6.3 g/dL (6.4-8.9)
[2020-08-13] MEDS: Ipratropium 1 PUFF INHALER IH SCH ×6 (04:25→23:11)
[2020-08-13] MEDS: Insulin LISPRO 300 UNITS/3 ML VIAL SUBQ SCH ×7 (07:40→20:10)
[2020-08-13] MEDS: Chlorhexidine Rinse 15 ML MOUTHWASH MM SCH (07:47)
[2020-08-13] MEDS: Azithromycin 250 MG TABLET PO SCH (07:48)
[2020-08-13] MEDS: Gabapentin 300 MG CAPSULE PO SCH ×2 (07:48→15:16)
[2020-08-13] MEDS: Multivit/Ca/Min/Fe/FA 1 TAB TABLET PO SCH (07:48)
[2020-08-13] MEDS: Furosemide 40 MG/4 ML VIAL IVP SCH (07:48)
[2020-08-13] MEDS: Dexamethasone Sodium Phos/PF 10 MG/ML VIAL IVP SCH (07:48)
[2020-08-13] MEDS: Artificial Tears SOLN 15 ML BOTTLE BOTH EYES SCH ×2 (07:49→20:09)
[2020-08-13] MEDS: cefTRIAXone 1,000 MG in Water for inj. (sterile) 10 ML IVP SCH (07:49)
[2020-08-13] MEDS: Propranolol LA (24 HR) 80 MG CAP.SA.24H PO SCH (07:50)
[2020-08-13] MEDS: Cholecalciferol (D-3) 1,000 UNIT (25MCG) TABLET PO SCH (07:56)
[2020-08-13] MEDS: Remdesivir 100 MG in 0.9 % Sodium Chloride 100 ML IVPB SCH (17:32)
[2020-08-13] MEDS: *HR* HYDROcodone/Acet 5/325 mg TABLET PO PRN (18:47)
[2020-08-13] MEDS: Gabapentin 400 MG CAPSULE PO SCH (20:11)
[2020-08-13] MEDS: Insulin DETEMIR 100 UNIT/ML X5UNITS SUBQ SCH (20:11)
[2020-08-14 02:05] LABS: Basophils % 0.1 %; Hematocrit 29.1 % (35.3-44.9); Hemoglobin 9.5 g/dL (11.5-15.4); Immature Granulocytes % 1.8 % (0-4); Lymphocytes # 1.2 K/mcL (0.6-4.6); Lymphocytes % 10.7 %; Mean Corpuscular HGB Conc 32.6 g/dL (31.6-35.5); Mean Corpuscular Hemoglobin 27.9 pg (28.0-33.3); Mean Corpuscular Volume 85.6 fL (83.0-100.0); Mean Platelet Volume 8.9 fL (9.4-12.4); Monocytes # 1.2 K/mcL (0.0-1.3); Monocytes % 10.6 %; Neutrophils # 8.9 K/mcL (1.6-8.9); Platelet Count 492 K/mcL (140-400); Red Cell Distribution Width 14.4 % (11.5-14.5); Segmented Neutrophils % 76.8 %; White Blood Count 11.6 K/mcL (4.3-11.1)
[2020-08-14 02:10] LABS: Heparin anti-factor XA UFH 0.88 IU/mL (0.30-0.70); INR 1.1
[2020-08-14 02:24] LABS: Albumin 2.7 g/dL (3.5-5.7); Albumin/Globulin Ratio 0.9 (1.1-2.2); Bilirubin,Total 0.3 mg/dL (0.3-1.0); Calcium 9.4 mg/dL (8.6-10.3); Phosphorous 2.8 mg/dL (2.7-4.5); Potassium 3.4 mEq/L (3.5-5.1); Total Protein 5.7 g/dL (6.4-8.9)
[2020-08-14] MEDS: Ipratropium 1 PUFF INHALER IH SCH ×5 (03:35→20:08)
[2020-08-14] MEDS: Insulin LISPRO 300 UNITS/3 ML VIAL SUBQ SCH ×7 (07:38→21:22)
[2020-08-14] MEDS: Cholecalciferol (D-3) 1,000 UNIT (25MCG) TABLET PO SCH (07:47)
[2020-08-14] MEDS: Propranolol LA (24 HR) 80 MG CAP.SA.24H PO SCH (07:47)
[2020-08-14] MEDS: cefTRIAXone 1,000 MG in Water for inj. (sterile) 10 ML IVP SCH (07:48)
[2020-08-14] MEDS: Gabapentin 400 MG CAPSULE PO SCH ×3 (07:48→21:21)
[2020-08-14] MEDS: Furosemide 40 MG/4 ML VIAL IVP SCH (07:48)
[2020-08-14] MEDS: Multivit/Ca/Min/Fe/FA 1 TAB TABLET PO SCH (07:48)
[2020-08-14] MEDS: Dexamethasone Sodium Phos/PF 10 MG/ML VIAL IVP SCH (07:48)
[2020-08-14] MEDS: Artificial Tears SOLN 15 ML BOTTLE BOTH EYES SCH ×2 (07:55→21:48)
[2020-08-14] MEDS: *HR* HYDROcodone/Acet 5/325 mg TABLET PO PRN (13:35)
[2020-08-14] MEDS: Remdesivir 100 MG in 0.9 % Sodium Chloride 100 ML IVPB SCH (17:08)
[2020-08-14] MEDS ORDERED: Saliva Stimulant 44.3ml BOTTLE PO PRN (17:26)
[2020-08-14] MEDS: Insulin DETEMIR 100 UNIT/ML X5UNITS SUBQ SCH (21:21)
[2020-08-14] MEDS: Melatonin 3 MG TABLET PO PRN (21:21)
[2020-08-15] MEDS: Ipratropium 1 PUFF INHALER IH SCH ×7 (00:18→23:15)
[2020-08-15] MEDS: Acetaminophen 325 MG TABLET PO PRN (03:31)
[2020-08-15 06:14] LABS: Basophils % 0.1 %; Eosinophils % 0.1 %; Hematocrit 31.8 % (35.3-44.9); Hemoglobin 10.1 g/dL (11.5-15.4); Immature Granulocytes % 1.5 % (0-4); Lymphocytes # 1.6 K/mcL (0.6-4.6); Lymphocytes % 9.4 %; Mean Corpuscular HGB Conc 31.8 g/dL (31.6-35.5); Mean Corpuscular Hemoglobin 27.4 pg (28.0-33.3); Mean Corpuscular Volume 86.2 fL (83.0-100.0); Monocytes % 5.7 %; Neutrophils # 14.2 K/mcL (1.6-8.9); Platelet Count 547 K/mcL (140-400); Red Blood Count 3.69 M/mcL (3.82-4.97); Red Cell Distribution Width 14.3 % (11.5-14.5); Segmented Neutrophils % 83.2 %
[2020-08-15 06:20] LABS: Heparin anti-factor XA UFH 0.61 IU/mL (0.30-0.70)
[2020-08-15 06:21] LABS: INR 1.1; Prothrombin Time 12.6 Seconds (9.4-12.1)
[2020-08-15 06:34] LABS: Albumin 2.9 g/dL (3.5-5.7); Albumin/Globulin Ratio 0.9 (1.1-2.2); Bilirubin,Total 0.3 mg/dL (0.3-1.0); Calcium 9.8 mg/dL (8.6-10.3); Globulin 3.2 g/dL (2.4-3.5); Magnesium 1.8 mg/dL (1.6-2.6); Phosphorous 2.6 mg/dL (2.7-4.5); Potassium 3.7 mEq/L (3.5-5.1); Total Protein 6.1 g/dL (6.4-8.9)
[2020-08-15] MEDS: Heparin 25,000UNIT/250ML 1/2NS 25,000 UNIT/250 ML IV.SOLN IVC SCH (06:46)
[2020-08-15] MEDS: Insulin LISPRO 300 UNITS/3 ML VIAL SUBQ SCH ×7 (08:23→20:15)
[2020-08-15] MEDS: Gabapentin 400 MG CAPSULE PO SCH ×3 (08:27→20:17)
[2020-08-15] MEDS: Multivit/Ca/Min/Fe/FA 1 TAB TABLET PO SCH (08:27)
[2020-08-15] MEDS: Cholecalciferol (D-3) 1,000 UNIT (25MCG) TABLET PO SCH (08:27)
[2020-08-15] MEDS: Propranolol LA (24 HR) 80 MG CAP.SA.24H PO SCH (08:27)
[2020-08-15] MEDS: Dexamethasone Sodium Phos/PF 10 MG/ML VIAL IVP SCH (08:27)
[2020-08-15] MEDS: Artificial Tears SOLN 15 ML BOTTLE BOTH EYES SCH ×2 (08:28→20:35)
[2020-08-15] MEDS ORDERED: Furosemide 20 MG/2 ML VIAL IVP SCH (09:00)
[2020-08-15] MEDS: *HR* HYDROcodone/Acet 5/325 mg TABLET PO PRN (14:58)
[2020-08-15] MEDS: Remdesivir 100 MG in 0.9 % Sodium Chloride 100 ML IVPB SCH (17:40)
[2020-08-15] MEDS: Melatonin 3 MG TABLET PO PRN (20:17)
[2020-08-15] MEDS: Insulin DETEMIR 100 UNIT/ML X5UNITS SUBQ SCH (20:17)
[2020-08-16] MEDS: Ipratropium 1 PUFF INHALER IH SCH ×6 (03:57→23:30)
[2020-08-16] MEDS: Acetaminophen 325 MG TABLET PO PRN ×2 (06:04→13:52)
[2020-08-16 06:05] LABS: Basophils % 0.2 %; Eosinophils % 0.1 %; Hematocrit 30.4 % (35.3-44.9); Hemoglobin 9.5 g/dL (11.5-15.4); Immature Granulocytes % 1.5 % (0-4); Lymphocytes # 1.3 K/mcL (0.6-4.6); Lymphocytes % 10.1 %; Mean Corpuscular HGB Conc 31.3 g/dL (31.6-35.5); Mean Corpuscular Hemoglobin 27.9 pg (28.0-33.3); Mean Corpuscular Volume 89.4 fL (83.0-100.0); Mean Platelet Volume 9.3 fL (9.4-12.4); Monocytes # 0.7 K/mcL (0.0-1.3); Monocytes % 5.9 %; Neutrophils # 10.2 K/mcL (1.6-8.9); Platelet Count 507 K/mcL (140-400); Red Cell Distribution Width 14.6 % (11.5-14.5); Segmented Neutrophils % 82.2 %; White Blood Count 12.4 K/mcL (4.3-11.1)
[2020-08-16 06:25] LABS: Albumin 2.7 g/dL (3.5-5.7); Albumin/Globulin Ratio 0.9 (1.1-2.2); Bilirubin,Total 0.3 mg/dL (0.3-1.0); Calcium 9.5 mg/dL (8.6-10.3); Globulin 2.9 g/dL (2.4-3.5); Magnesium 1.9 mg/dL (1.6-2.6); Phosphorous 2.6 mg/dL (2.7-4.5); Potassium 4.1 mEq/L (3.5-5.1); Total Protein 5.6 g/dL (6.4-8.9)
[2020-08-16] MEDS ORDERED: Furosemide 40 MG/4 ML VIAL IVP ONE (07:36)
[2020-08-16] MEDS: Multivit/Ca/Min/Fe/FA 1 TAB TABLET PO SCH (08:14)
[2020-08-16] MEDS: Propranolol LA (24 HR) 80 MG CAP.SA.24H PO SCH (08:14)
[2020-08-16] MEDS: Gabapentin 400 MG CAPSULE PO SCH ×3 (08:15→20:25)
[2020-08-16] MEDS: Cholecalciferol (D-3) 1,000 UNIT (25MCG) TABLET PO SCH (08:15)
[2020-08-16] MEDS: Dexamethasone Sodium Phos/PF 10 MG/ML VIAL IVP SCH (08:15)
[2020-08-16] MEDS: Insulin LISPRO 300 UNITS/3 ML VIAL SUBQ SCH ×7 (08:16→20:27)
[2020-08-16 10:04] LABS: Hematocrit 31.5 % (35.3-44.9); Hemoglobin 9.8 g/dL (11.5-15.4)
[2020-08-16] MEDS: Artificial Tears SOLN 15 ML BOTTLE BOTH EYES SCH ×2 (10:09→20:28)
[2020-08-16] MEDS: *HR* HYDROcodone/Acet 5/325 mg TABLET PO PRN ×2 (16:45→22:42)
[2020-08-16] MEDS: Melatonin 3 MG TABLET PO PRN (20:25)
[2020-08-16] MEDS: Insulin DETEMIR 100 UNIT/ML X5UNITS SUBQ SCH (20:26)
[2020-08-16] MEDS: Methyl Salicylate/Menthol 57 APPL/57 GM TUBE TP PRN (22:43)
[2020-08-17] MEDS: Heparin 25,000UNIT/250ML 1/2NS 25,000 UNIT/250 ML IV.SOLN IVC SCH ×3 (02:03→17:50)
[2020-08-17] MEDS: Ipratropium 1 PUFF INHALER IH SCH ×6 (04:09→23:17)
[2020-08-17 06:02] LABS: Basophils % 0.1 %; Eosinophils # 0.1 K/mcL (0.0-0.6); Eosinophils % 0.6 %; Hematocrit 30.4 % (35.3-44.9); Hemoglobin 9.5 g/dL (11.5-15.4); Immature Granulocytes % 1.4 % (0-4); Lymphocytes # 1.3 K/mcL (0.6-4.6); Lymphocytes % 10.3 %; Mean Corpuscular HGB Conc 31.3 g/dL (31.6-35.5); Mean Corpuscular Volume 89.7 fL (83.0-100.0); Mean Platelet Volume 9.4 fL (9.4-12.4); Monocytes # 0.7 K/mcL (0.0-1.3); Monocytes % 5.7 %; Neutrophils # 10.3 K/mcL (1.6-8.9); Platelet Count 518 K/mcL (140-400); Red Blood Count 3.39 M/mcL (3.82-4.97); Red Cell Distribution Width 14.7 % (11.5-14.5); Segmented Neutrophils % 81.9 %; White Blood Count 12.5 K/mcL (4.3-11.1)
[2020-08-17 06:22] LABS: Alanine Aminotransferase 11 Units/L (7-52); Albumin 2.7 g/dL (3.5-5.7); Albumin/Globulin Ratio 0.9 (1.1-2.2); Alkaline Phosphatase 67 Units/L (34-104); Aspartate Amino Transferase 14 Units/L (13-39); BUN/Creatinine Ratio 51 (6-26); Bilirubin,Total 0.3 mg/dL (0.3-1.0); Blood Urea Nitrogen 55 mg/dL (8-23); Calcium 9.6 mg/dL (8.6-10.3); Carbon Dioxide 35 mEq/L (23-29); Chloride 95 mEq/L (98-107); Globulin 2.9 g/dL (2.4-3.5); Glucose 172 mg/dL (70-105); Osmolality,Calculated 301 (280-300); Potassium 4.4 mEq/L (3.5-5.1); Sodium 136 mEq/L (136-145); Total Protein 5.6 g/dL (6.4-8.9); eGFR For African Americans > 60 (> 60); eGFR For Non-African Americans 50 (> 60)
[2020-08-17 06:28] LABS: Magnesium 1.8 mg/dL (1.6-2.6); Phosphorous 2.8 mg/dL (2.7-4.5)
[2020-08-17] MEDS: Cholecalciferol (D-3) 1,000 UNIT (25MCG) TABLET PO SCH (07:50)
[2020-08-17] MEDS: Multivit/Ca/Min/Fe/FA 1 TAB TABLET PO SCH (07:50)
[2020-08-17] MEDS: Propranolol LA (24 HR) 80 MG CAP.SA.24H PO SCH (07:50)
[2020-08-17] MEDS: Gabapentin 400 MG CAPSULE PO SCH ×3 (07:50→20:14)
[2020-08-17] MEDS: Furosemide 20 MG/2 ML VIAL IVP SCH (07:51)
[2020-08-17] MEDS: Dexamethasone Sodium Phos/PF 10 MG/ML VIAL IVP SCH (07:51)
[2020-08-17] MEDS: Artificial Tears SOLN 15 ML BOTTLE BOTH EYES SCH ×2 (08:09→20:21)
[2020-08-17] MEDS: Insulin LISPRO 300 UNITS/3 ML VIAL SUBQ SCH ×7 (08:09→21:16)
[2020-08-17] MEDS: *HR* HYDROcodone/Acet 5/325 mg TABLET PO PRN (13:55)
[2020-08-17] MEDS ORDERED: Heparin 25,000UNIT/250ML 1/2NS 25,000 UNIT/250 ML IV.SOLN IVC SCH (14:51)
[2020-08-17] MEDS: Apixaban 5 MG TABLET PO SCH (17:37)
[2020-08-17] MEDS: Melatonin 3 MG TABLET PO PRN (20:14)
[2020-08-17] MEDS: Insulin DETEMIR 100 UNIT/ML X5UNITS SUBQ SCH (21:15)
[2020-08-18] MEDS: Ipratropium 1 PUFF INHALER IH SCH ×5 (03:39→19:49)
[2020-08-18 04:39] LABS: Basophils % 0.1 %; Eosinophils % 0.2 %; Hematocrit 28.8 % (35.3-44.9); Hemoglobin 9.3 g/dL (11.5-15.4); Immature Granulocytes % 1.6 % (0-4); Lymphocytes % 8.8 %; Mean Corpuscular HGB Conc 32.3 g/dL (31.6-35.5); Mean Corpuscular Volume 86.7 fL (83.0-100.0); Mean Platelet Volume 9.3 fL (9.4-12.4); Monocytes # 0.8 K/mcL (0.0-1.3); Monocytes % 6.7 %; Neutrophils # 9.2 K/mcL (1.6-8.9); Platelet Count 513 K/mcL (140-400); Red Blood Count 3.32 M/mcL (3.82-4.97); Red Cell Distribution Width 14.8 % (11.5-14.5); Segmented Neutrophils % 82.6 %; White Blood Count 11.2 K/mcL (4.3-11.1)
[2020-08-18 04:54] LABS: Alanine Aminotransferase 11 Units/L (7-52); Albumin 2.6 g/dL (3.5-5.7); Albumin/Globulin Ratio 0.8 (1.1-2.2); Alkaline Phosphatase 67 Units/L (34-104); Aspartate Amino Transferase 12 Units/L (13-39); BUN/Creatinine Ratio 51 (6-26); Bilirubin,Total 0.3 mg/dL (0.3-1.0); Blood Urea Nitrogen 52 mg/dL (8-23); Calcium 9.7 mg/dL (8.6-10.3); Carbon Dioxide 34 mEq/L (23-29); Chloride 95 mEq/L (98-107); Globulin 3.1 g/dL (2.4-3.5); Glucose 151 mg/dL (70-105); Osmolality,Calculated 295 (280-300); Potassium 4.2 mEq/L (3.5-5.1); Sodium 134 mEq/L (136-145); Total Protein 5.7 g/dL (6.4-8.9); eGFR For African Americans > 60 (> 60); eGFR For Non-African Americans 54 (> 60)
[2020-08-18] MEDS: Apixaban 5 MG TABLET PO SCH ×2 (06:25→16:58)
[2020-08-18] MEDS: Gabapentin 400 MG CAPSULE PO SCH ×3 (08:15→20:10)
[2020-08-18] MEDS: Propranolol LA (24 HR) 80 MG CAP.SA.24H PO SCH (08:15)
[2020-08-18] MEDS: Cholecalciferol (D-3) 1,000 UNIT (25MCG) TABLET PO SCH (08:15)
[2020-08-18] MEDS: Multivit/Ca/Min/Fe/FA 1 TAB TABLET PO SCH (08:16)
[2020-08-18] MEDS: Dexamethasone Sodium Phos/PF 10 MG/ML VIAL IVP SCH (08:16)
[2020-08-18] MEDS: Furosemide 20 MG/2 ML VIAL IVP SCH (08:18)
[2020-08-18] MEDS: Insulin LISPRO 300 UNITS/3 ML VIAL SUBQ SCH ×7 (08:27→20:09)
[2020-08-18] MEDS: Artificial Tears SOLN 15 ML BOTTLE BOTH EYES SCH ×2 (08:27→20:09)
[2020-08-18] MEDS: Insulin DETEMIR 100 UNIT/ML X5UNITS SUBQ SCH (20:10)
[2020-08-18] MEDS: *HR* LORazepam 0.5 MG TABLET PO PRN (20:11)
[2020-08-18] MEDS: *HR* HYDROcodone/Acet 5/325 mg TABLET PO PRN (20:11)
[2020-08-18] MEDS: Melatonin 3 MG TABLET PO PRN (20:11)
[2020-08-19] MEDS: Ipratropium 1 PUFF INHALER IH SCH ×7 (00:05→23:10)
[2020-08-19] MEDS: *HR* HYDROcodone/Acet 5/325 mg TABLET PO PRN (04:11)
[2020-08-19 05:12] LABS: Basophils % 0.1 %; Hematocrit 28.8 % (35.3-44.9); Hemoglobin 9.5 g/dL (11.5-15.4); Immature Granulocytes % 1.1 % (0-4); Lymphocytes % 8.8 %; Mean Corpuscular Hemoglobin 28.4 pg (28.0-33.3); Mean Corpuscular Volume 86.2 fL (83.0-100.0); Mean Platelet Volume 9.4 fL (9.4-12.4); Monocytes # 0.8 K/mcL (0.0-1.3); Monocytes % 6.9 %; Neutrophils # 9.5 K/mcL (1.6-8.9); Platelet Count 504 K/mcL (140-400); Red Blood Count 3.34 M/mcL (3.82-4.97); Segmented Neutrophils % 83.1 %; White Blood Count 11.4 K/mcL (4.3-11.1)
[2020-08-19 05:30] LABS: BUN/Creatinine Ratio 54 (6-26); Blood Urea Nitrogen 52 mg/dL (8-23); Calcium 9.7 mg/dL (8.6-10.3); Carbon Dioxide 34 mEq/L (23-29); Chloride 96 mEq/L (98-107); Glucose 188 mg/dL (70-105); Osmolality,Calculated 301 (280-300); Potassium 4.7 mEq/L (3.5-5.1); Sodium 136 mEq/L (136-145); eGFR For African Americans > 60 (> 60); eGFR For Non-African Americans 57 (> 60)
[2020-08-19 05:48] LABS: Ferritin 976 ng/mL (10-120)
[2020-08-19] MEDS: Apixaban 5 MG TABLET PO SCH ×2 (05:57→16:40)
[2020-08-19 06:46] LABS: Fibrinogen 603 mg/dL (169-393)
[2020-08-19 06:49] LABS: D-Dimer 4690 ng/mLFEU (0-500)
[2020-08-19] MEDS: Insulin LISPRO 300 UNITS/3 ML VIAL SUBQ SCH ×7 (08:18→20:24)
[2020-08-19] MEDS: Dexamethasone Sodium Phos/PF 10 MG/ML VIAL IVP SCH (08:25)
[2020-08-19] MEDS: Propranolol LA (24 HR) 80 MG CAP.SA.24H PO SCH (08:26)
[2020-08-19] MEDS: Multivit/Ca/Min/Fe/FA 1 TAB TABLET PO SCH (08:26)
[2020-08-19] MEDS: Furosemide 20 MG/2 ML VIAL IVP SCH (08:27)
[2020-08-19] MEDS: Cholecalciferol (D-3) 1,000 UNIT (25MCG) TABLET PO SCH (08:27)
[2020-08-19] MEDS: Gabapentin 400 MG CAPSULE PO SCH ×3 (08:27→20:06)
[2020-08-19] MEDS: Artificial Tears SOLN 15 ML BOTTLE BOTH EYES SCH ×2 (08:40→22:08)
[2020-08-19] MEDS: Acetaminophen 325 MG TABLET PO PRN (11:27)
[2020-08-19] MEDS ORDERED: Carbamide Peroxide 150 DROP/15 ML BOTTLE LEFT EAR ONE (13:24)
[2020-08-19] MEDS: *HR* LORazepam 0.5 MG TABLET PO PRN (16:44)
[2020-08-19] MEDS: Insulin DETEMIR 100 UNIT/ML X5UNITS SUBQ SCH (20:07)
[2020-08-19] MEDS: Melatonin 3 MG TABLET PO PRN (20:27)
[2020-08-20] MEDS: Ipratropium 1 PUFF INHALER IH SCH ×6 (04:24→23:11)
[2020-08-20] MEDS: Apixaban 5 MG TABLET PO SCH ×2 (05:20→18:11)
[2020-08-20 06:16] LABS: Basophils % 0.1 %; Eosinophils % 0.2 %; Hematocrit 31.2 % (35.3-44.9); Hemoglobin 9.9 g/dL (11.5-15.4); Immature Granulocytes % 1.2 % (0-4); Lymphocytes # 1.1 K/mcL (0.6-4.6); Lymphocytes % 8.9 %; Mean Corpuscular HGB Conc 31.7 g/dL (31.6-35.5); Mean Corpuscular Hemoglobin 28.3 pg (28.0-33.3); Mean Corpuscular Volume 89.1 fL (83.0-100.0); Mean Platelet Volume 9.5 fL (9.4-12.4); Monocytes % 7.7 %; Neutrophils # 10.2 K/mcL (1.6-8.9); Platelet Count 492 K/mcL (140-400); Red Cell Distribution Width 14.9 % (11.5-14.5); Segmented Neutrophils % 81.9 %; White Blood Count 12.4 K/mcL (4.3-11.1)
[2020-08-20 06:50] LABS: BUN/Creatinine Ratio 54 (6-26); Blood Urea Nitrogen 52 mg/dL (8-23); Carbon Dioxide 35 mEq/L (23-29); Chloride 95 mEq/L (98-107); Glucose 128 mg/dL (70-105); Osmolality,Calculated 298 (280-300); Potassium 4.2 mEq/L (3.5-5.1); Sodium 136 mEq/L (136-145); eGFR For African Americans > 60 (> 60); eGFR For Non-African Americans 57 (> 60)
[2020-08-20] MEDS: Gabapentin 400 MG CAPSULE PO SCH ×3 (08:32→20:02)
[2020-08-20] MEDS: Multivit/Ca/Min/Fe/FA 1 TAB TABLET PO SCH (08:32)
[2020-08-20] MEDS: Propranolol LA (24 HR) 80 MG CAP.SA.24H PO SCH (08:32)
[2020-08-20] MEDS: Dexamethasone Sodium Phos/PF 10 MG/ML VIAL IVP SCH (08:32)
[2020-08-20] MEDS: Furosemide 20 MG/2 ML VIAL IVP SCH (08:32)
[2020-08-20] MEDS: Cholecalciferol (D-3) 1,000 UNIT (25MCG) TABLET PO SCH (08:32)
[2020-08-20] MEDS: Insulin LISPRO 300 UNITS/3 ML VIAL SUBQ SCH ×7 (08:33→20:05)
[2020-08-20] MEDS: Artificial Tears SOLN 15 ML BOTTLE BOTH EYES SCH ×2 (08:33→20:02)
[2020-08-20] MEDS: *HR* LORazepam 0.5 MG TABLET PO PRN (18:26)
[2020-08-20] MEDS: Melatonin 3 MG TABLET PO PRN (20:02)
[2020-08-20] MEDS: Acetaminophen 325 MG TABLET PO PRN (20:02)
[2020-08-20] MEDS: Insulin DETEMIR 100 UNIT/ML X5UNITS SUBQ SCH (20:04)
[2020-08-21] MEDS: Ipratropium 1 PUFF INHALER IH SCH ×6 (03:50→22:56)
[2020-08-21] MEDS: Apixaban 5 MG TABLET PO SCH ×2 (06:56→17:17)
[2020-08-21 07:18] LABS: Basophils % 0.1 %; Eosinophils % 0.2 %; Hemoglobin 9.7 g/dL (11.5-15.4); Immature Granulocytes % 0.8 % (0-4); Lymphocytes # 1.2 K/mcL (0.6-4.6); Lymphocytes % 9.9 %; Mean Corpuscular HGB Conc 32.3 g/dL (31.6-35.5); Mean Corpuscular Hemoglobin 28.7 pg (28.0-33.3); Mean Corpuscular Volume 88.8 fL (83.0-100.0); Mean Platelet Volume 9.8 fL (9.4-12.4); Monocytes % 8.7 %; Neutrophils # 9.6 K/mcL (1.6-8.9); Platelet Count 460 K/mcL (140-400); Red Blood Count 3.38 M/mcL (3.82-4.97); Red Cell Distribution Width 15.1 % (11.5-14.5); Segmented Neutrophils % 80.3 %; White Blood Count 11.9 K/mcL (4.3-11.1)
[2020-08-21] MEDS: Propranolol LA (24 HR) 80 MG CAP.SA.24H PO SCH (07:49)
[2020-08-21] MEDS: Multivit/Ca/Min/Fe/FA 1 TAB TABLET PO SCH (07:49)
[2020-08-21] MEDS: Cholecalciferol (D-3) 1,000 UNIT (25MCG) TABLET PO SCH (07:49)
[2020-08-21] MEDS: Gabapentin 400 MG CAPSULE PO SCH ×3 (07:49→20:19)
[2020-08-21] MEDS: Insulin LISPRO 300 UNITS/3 ML VIAL SUBQ SCH ×7 (07:51→20:18)
[2020-08-21] MEDS: Artificial Tears SOLN 15 ML BOTTLE BOTH EYES SCH ×2 (07:52→23:39)
[2020-08-21 09:14] LABS: BUN/Creatinine Ratio 55 (6-26); Blood Urea Nitrogen 55 mg/dL (8-23); Calcium 9.6 mg/dL (8.6-10.3); Carbon Dioxide 33 mEq/L (23-29); Chloride 95 mEq/L (98-107); Glucose 99 mg/dL (70-105); Osmolality,Calculated 295 (280-300); Potassium 4.4 mEq/L (3.5-5.1); Sodium 135 mEq/L (136-145); eGFR For African Americans > 60 (> 60); eGFR For Non-African Americans 54 (> 60)
[2020-08-21] MEDS: Dexamethasone Sodium Phos/PF 10 MG/ML VIAL IVP SCH (12:31)
[2020-08-21] MEDS: *HR* LORazepam 0.5 MG TABLET PO PRN (17:44)
[2020-08-21] MEDS: Insulin DETEMIR 100 UNIT/ML X5UNITS SUBQ SCH (20:19)
[2020-08-21] MEDS: Melatonin 3 MG TABLET PO PRN (20:20)
[2020-08-21] MEDS: *HR* HYDROcodone/Acet 5/325 mg TABLET PO PRN (20:20)
[2020-08-22] MEDS: Furosemide 20 MG/2 ML VIAL IVP SCH (00:26)
[2020-08-22] MEDS: Insulin LISPRO 300 UNITS/3 ML VIAL SUBQ SCH ×8 (00:27→20:59)
[2020-08-22] MEDS: Ipratropium 1 PUFF INHALER IH SCH ×5 (03:49→20:22)
[2020-08-22] MEDS: *HR* HYDROcodone/Acet 5/325 mg TABLET PO PRN ×2 (05:11→16:02)
[2020-08-22] MEDS: Apixaban 5 MG TABLET PO SCH ×2 (05:53→17:22)
[2020-08-22] MEDS: Gabapentin 400 MG CAPSULE PO SCH ×3 (09:02→20:18)
[2020-08-22] MEDS: Furosemide 40 MG TABLET PO SCH (09:02)
[2020-08-22] MEDS: Multivit/Ca/Min/Fe/FA 1 TAB TABLET PO SCH (09:02)
[2020-08-22] MEDS: Cholecalciferol (D-3) 1,000 UNIT (25MCG) TABLET PO SCH (09:03)
[2020-08-22] MEDS: Dexamethasone Sodium Phos/PF 10 MG/ML VIAL IVP SCH (09:03)
[2020-08-22] MEDS: Propranolol LA (24 HR) 80 MG CAP.SA.24H PO SCH (09:03)
[2020-08-22] MEDS: Artificial Tears SOLN 15 ML BOTTLE BOTH EYES SCH ×2 (09:04→20:36)
[2020-08-22 11:10] LABS: Hematocrit 32.4 % (35.3-44.9); Hemoglobin 10.1 g/dL (11.5-15.4); Mean Corpuscular HGB Conc 31.2 g/dL (31.6-35.5); Mean Corpuscular Hemoglobin 27.9 pg (28.0-33.3); Mean Corpuscular Volume 89.5 fL (83.0-100.0); Mean Platelet Volume 9.9 fL (9.4-12.4); Platelet Count 487 K/mcL (140-400); Red Blood Count 3.62 M/mcL (3.82-4.97); Red Cell Distribution Width 15.5 % (11.5-14.5)
[2020-08-22 11:52] LABS: BUN/Creatinine Ratio 52 (6-26); Blood Urea Nitrogen 55 mg/dL (8-23); Calcium 9.5 mg/dL (8.6-10.3); Carbon Dioxide 28 mEq/L (23-29); Chloride 93 mEq/L (98-107); Glucose 326 mg/dL (70-105); Osmolality,Calculated 302 (280-300); Potassium 4.8 mEq/L (3.5-5.1); Sodium 132 mEq/L (136-145); eGFR For African Americans > 60 (> 60); eGFR For Non-African Americans 51 (> 60)
[2020-08-22] MEDS: Insulin DETEMIR 100 UNIT/ML X5UNITS SUBQ SCH (20:59)
[2020-08-23] MEDS: Ipratropium 1 PUFF INHALER IH SCH ×7 (00:33→23:26)
[2020-08-23] MEDS: *HR* HYDROcodone/Acet 5/325 mg TABLET PO PRN ×2 (04:27→18:00)
[2020-08-23] MEDS: Apixaban 5 MG TABLET PO SCH ×2 (05:46→16:45)
[2020-08-23] MEDS: Insulin LISPRO 300 UNITS/3 ML VIAL SUBQ SCH ×7 (07:49→21:12)
[2020-08-23] MEDS: Gabapentin 400 MG CAPSULE PO SCH ×3 (07:53→21:11)
[2020-08-23] MEDS: Dexamethasone Sodium Phos/PF 10 MG/ML VIAL IVP SCH (07:53)
[2020-08-23] MEDS: Cholecalciferol (D-3) 1,000 UNIT (25MCG) TABLET PO SCH (07:53)
[2020-08-23] MEDS: Furosemide 40 MG TABLET PO SCH (07:53)
[2020-08-23] MEDS: Multivit/Ca/Min/Fe/FA 1 TAB TABLET PO SCH (07:53)
[2020-08-23] MEDS: Propranolol LA (24 HR) 80 MG CAP.SA.24H PO SCH (07:53)
[2020-08-23] MEDS: Artificial Tears SOLN 15 ML BOTTLE BOTH EYES SCH ×2 (07:54→21:13)
[2020-08-23] MEDS: *HR* LORazepam 0.5 MG TABLET PO PRN (16:53)
[2020-08-23] MEDS: Ondansetron 4 MG/2 ML VIAL IVP PRN (18:00)
[2020-08-23] MEDS: Insulin DETEMIR 100 UNIT/ML X5UNITS SUBQ SCH (21:11)
[2020-08-24 02:12] LABS: Basophils % 0.1 %; Eosinophils % 0.1 %; Hemoglobin 9.2 g/dL (11.5-15.4); Immature Granulocytes % 0.5 % (0-4); Lymphocytes # 1.1 K/mcL (0.6-4.6); Lymphocytes % 9.4 %; Mean Corpuscular HGB Conc 31.7 g/dL (31.6-35.5); Mean Corpuscular Volume 88.4 fL (83.0-100.0); Mean Platelet Volume 9.8 fL (9.4-12.4); Monocytes # 0.8 K/mcL (0.0-1.3); Monocytes % 6.8 %; Neutrophils # 9.5 K/mcL (1.6-8.9); Platelet Count 377 K/mcL (140-400); Red Blood Count 3.28 M/mcL (3.82-4.97); Red Cell Distribution Width 15.6 % (11.5-14.5); Segmented Neutrophils % 83.1 %; White Blood Count 11.4 K/mcL (4.3-11.1)
[2020-08-24 02:33] LABS: BUN/Creatinine Ratio 55 (6-26); Blood Urea Nitrogen 57 mg/dL (8-23); Calcium 9.4 mg/dL (8.6-10.3); Carbon Dioxide 36 mEq/L (23-29); Chloride 96 mEq/L (98-107); Glucose 166 mg/dL (70-105); Osmolality,Calculated 306 (280-300); Potassium 4.2 mEq/L (3.5-5.1); Sodium 138 mEq/L (136-145); eGFR For African Americans > 60 (> 60); eGFR For Non-African Americans 52 (> 60)
[2020-08-24] MEDS: Ipratropium 1 PUFF INHALER IH SCH ×6 (03:45→23:08)
[2020-08-24] MEDS: Apixaban 5 MG TABLET PO SCH ×2 (05:07→16:12)
[2020-08-24] MEDS: Insulin LISPRO 300 UNITS/3 ML VIAL SUBQ SCH ×8 (07:19→21:05)
[2020-08-24] MEDS: Cholecalciferol (D-3) 1,000 UNIT (25MCG) TABLET PO SCH (07:31)
[2020-08-24] MEDS: Multivit/Ca/Min/Fe/FA 1 TAB TABLET PO SCH (07:32)
[2020-08-24] MEDS: Propranolol LA (24 HR) 80 MG CAP.SA.24H PO SCH (07:32)
[2020-08-24] MEDS: Furosemide 40 MG TABLET PO SCH (07:32)
[2020-08-24] MEDS: Gabapentin 400 MG CAPSULE PO SCH ×3 (07:32→21:06)
[2020-08-24] MEDS: Dexamethasone 4 MG/ML VIAL IVP SCH (07:32)
[2020-08-24] MEDS: Artificial Tears SOLN 15 ML BOTTLE BOTH EYES SCH ×2 (07:38→21:05)
[2020-08-24] MEDS: Insulin DETEMIR 100 UNIT/ML X5UNITS SUBQ SCH (21:06)
[2020-08-24] MEDS: *HR* LORazepam 0.5 MG TABLET PO PRN (21:29)
[2020-08-25] MEDS: Ipratropium 1 PUFF INHALER IH SCH ×6 (04:10→23:05)
[2020-08-25] MEDS: Apixaban 5 MG TABLET PO SCH ×2 (06:17→17:11)
[2020-08-25] MEDS: Insulin LISPRO 300 UNITS/3 ML VIAL SUBQ SCH ×7 (08:07→20:00)
[2020-08-25] MEDS: Dexamethasone 4 MG/ML VIAL IVP SCH (08:45)
[2020-08-25] MEDS: Propranolol LA (24 HR) 80 MG CAP.SA.24H PO SCH (08:46)
[2020-08-25] MEDS: Furosemide 40 MG TABLET PO SCH (08:46)
[2020-08-25] MEDS: Gabapentin 400 MG CAPSULE PO SCH ×3 (08:46→19:58)
[2020-08-25] MEDS: Multivit/Ca/Min/Fe/FA 1 TAB TABLET PO SCH (08:46)
[2020-08-25] MEDS: Cholecalciferol (D-3) 1,000 UNIT (25MCG) TABLET PO SCH (08:46)
[2020-08-25] MEDS: Artificial Tears SOLN 15 ML BOTTLE BOTH EYES SCH ×2 (08:47→19:59)
[2020-08-25] MEDS: *HR* LORazepam 0.5 MG TABLET PO PRN (16:02)
[2020-08-25] MEDS: Melatonin 3 MG TABLET PO PRN (19:58)
[2020-08-25] MEDS: Insulin DETEMIR 100 UNIT/ML X5UNITS SUBQ SCH (19:58)
[2020-08-25] MEDS: *HR* HYDROcodone/Acet 5/325 mg TABLET PO PRN (20:00)
[2020-08-26] MEDS: Ipratropium 1 PUFF INHALER IH SCH ×6 (04:02→23:01)
[2020-08-26] MEDS: Apixaban 5 MG TABLET PO SCH ×2 (06:00→17:05)
[2020-08-26] MEDS: Insulin LISPRO 300 UNITS/3 ML VIAL SUBQ SCH ×7 (07:35→20:00)
[2020-08-26] MEDS: Furosemide 40 MG TABLET PO SCH (10:18)
[2020-08-26] MEDS: Propranolol LA (24 HR) 80 MG CAP.SA.24H PO SCH (10:18)
[2020-08-26] MEDS: Dexamethasone 4 MG/ML VIAL IVP SCH (10:19)
[2020-08-26] MEDS: Gabapentin 400 MG CAPSULE PO SCH ×3 (10:19→19:58)
[2020-08-26] MEDS: Multivit/Ca/Min/Fe/FA 1 TAB TABLET PO SCH (10:19)
[2020-08-26] MEDS: Cholecalciferol (D-3) 1,000 UNIT (25MCG) TABLET PO SCH (10:20)
[2020-08-26] MEDS: Artificial Tears SOLN 15 ML BOTTLE BOTH EYES SCH ×2 (10:21→20:55)
[2020-08-26] MEDS: Ondansetron 4 MG/2 ML VIAL IVP PRN (13:47)
[2020-08-26] MEDS: Melatonin 3 MG TABLET PO PRN (19:59)
[2020-08-26] MEDS: *HR* HYDROcodone/Acet 5/325 mg TABLET PO PRN (19:59)
[2020-08-26] MEDS: Insulin DETEMIR 100 UNIT/ML X5UNITS SUBQ SCH (20:01)
[2020-08-27] MEDS: Ipratropium 1 PUFF INHALER IH SCH ×6 (04:14→23:00)
[2020-08-27] MEDS: Apixaban 5 MG TABLET PO SCH ×2 (05:23→16:56)
[2020-08-27 05:52] LABS: Basophils % 0.1 %; Eosinophils # 0.1 K/mcL (0.0-0.6); Eosinophils % 1.1 %; Hematocrit 29.1 % (35.3-44.9); Hemoglobin 9.2 g/dL (11.5-15.4); Immature Granulocytes % 0.3 % (0-4); Lymphocytes # 1.1 K/mcL (0.6-4.6); Lymphocytes % 9.9 %; Mean Corpuscular HGB Conc 31.6 g/dL (31.6-35.5); Mean Corpuscular Volume 91.8 fL (83.0-100.0); Mean Platelet Volume 9.7 fL (9.4-12.4); Monocytes # 0.6 K/mcL (0.0-1.3); Monocytes % 5.5 %; Neutrophils # 8.8 K/mcL (1.6-8.9); Platelet Count 302 K/mcL (140-400); Red Blood Count 3.17 M/mcL (3.82-4.97); Red Cell Distribution Width 16.4 % (11.5-14.5); Segmented Neutrophils % 83.1 %; White Blood Count 10.6 K/mcL (4.3-11.1)
[2020-08-27 06:11] LABS: BUN/Creatinine Ratio 44 (6-26); Blood Urea Nitrogen 39 mg/dL (8-23); Calcium 9.2 mg/dL (8.6-10.3); Carbon Dioxide 34 mEq/L (23-29); Chloride 97 mEq/L (98-107); Glucose 192 mg/dL (70-105); Osmolality,Calculated 299 (280-300); Potassium 4.1 mEq/L (3.5-5.1); Sodium 137 mEq/L (136-145); eGFR For African Americans > 60 (> 60); eGFR For Non-African Americans > 60 (> 60)
[2020-08-27] MEDS: Insulin LISPRO 300 UNITS/3 ML VIAL SUBQ SCH ×7 (08:16→20:03)
[2020-08-27] MEDS: Dexamethasone 4 MG/ML VIAL IVP SCH (08:31)
[2020-08-27] MEDS: Furosemide 40 MG TABLET PO SCH (08:32)
[2020-08-27] MEDS: Gabapentin 400 MG CAPSULE PO SCH ×3 (08:32→20:01)
[2020-08-27] MEDS: Cholecalciferol (D-3) 1,000 UNIT (25MCG) TABLET PO SCH (08:33)
[2020-08-27] MEDS: Artificial Tears SOLN 15 ML BOTTLE BOTH EYES SCH ×2 (08:34→20:04)
[2020-08-27] MEDS: Propranolol LA (24 HR) 80 MG CAP.SA.24H PO SCH (08:38)
[2020-08-27] MEDS: Multivit/Ca/Min/Fe/FA 1 TAB TABLET PO SCH (08:38)
[2020-08-27] MEDS: *HR* HYDROcodone/Acet 5/325 mg TABLET PO PRN (13:06)
[2020-08-27] MEDS: Acetaminophen 325 MG TABLET PO PRN (15:04)
[2020-08-27] MEDS: Melatonin 3 MG TABLET PO PRN (20:01)
[2020-08-27] MEDS: Insulin DETEMIR 100 UNIT/ML X5UNITS SUBQ SCH (20:02)
[2020-08-28] MEDS: Ipratropium 1 PUFF INHALER IH SCH ×6 (03:53→23:16)
[2020-08-28] MEDS: Apixaban 5 MG TABLET PO SCH ×2 (05:20→17:52)
[2020-08-28] MEDS: Furosemide 40 MG TABLET PO SCH (09:04)
[2020-08-28] MEDS: Artificial Tears SOLN 15 ML BOTTLE BOTH EYES SCH ×2 (09:04→20:45)
[2020-08-28] MEDS: Propranolol LA (24 HR) 80 MG CAP.SA.24H PO SCH (09:04)
[2020-08-28] MEDS: Gabapentin 400 MG CAPSULE PO SCH ×3 (09:04→20:44)
[2020-08-28] MEDS: Cholecalciferol (D-3) 1,000 UNIT (25MCG) TABLET PO SCH (09:04)
[2020-08-28] MEDS: Multivit/Ca/Min/Fe/FA 1 TAB TABLET PO SCH (09:04)
[2020-08-28] MEDS: Dexamethasone 4 MG/ML VIAL IVP SCH (09:05)
[2020-08-28] MEDS: Insulin LISPRO 300 UNITS/3 ML VIAL SUBQ SCH ×7 (09:06→20:45)
[2020-08-28] MEDS: *HR* HYDROcodone/Acet 5/325 mg TABLET PO PRN (17:55)
[2020-08-28] MEDS: Melatonin 3 MG TABLET PO PRN (20:44)
[2020-08-28] MEDS: Insulin DETEMIR 100 UNIT/ML X5UNITS SUBQ SCH (20:46)
[2020-08-29] MEDS: Ipratropium 1 PUFF INHALER IH SCH ×5 (03:46→20:18)
[2020-08-29] MEDS: *HR* HYDROcodone/Acet 5/325 mg TABLET PO PRN ×3 (04:40→19:50)
[2020-08-29] MEDS: Apixaban 5 MG TABLET PO SCH ×2 (05:26→17:46)
[2020-08-29] MEDS: Insulin LISPRO 300 UNITS/3 ML VIAL SUBQ SCH ×7 (09:16→19:51)
[2020-08-29] MEDS: Furosemide 40 MG TABLET PO SCH (09:29)
[2020-08-29] MEDS: Cholecalciferol (D-3) 1,000 UNIT (25MCG) TABLET PO SCH (09:29)
[2020-08-29] MEDS: Gabapentin 400 MG CAPSULE PO SCH ×3 (09:29→19:49)
[2020-08-29] MEDS: Propranolol LA (24 HR) 80 MG CAP.SA.24H PO SCH (09:29)
[2020-08-29] MEDS: Multivit/Ca/Min/Fe/FA 1 TAB TABLET PO SCH (09:30)
[2020-08-29] MEDS: Artificial Tears SOLN 15 ML BOTTLE BOTH EYES SCH ×2 (09:30→19:51)
[2020-08-29] MEDS ORDERED: polyethylene glycoL 3350 17 GM POWD.PACK PO ONE (11:58)
[2020-08-29] MEDS: Dexamethasone 4 MG/ML VIAL IVP SCH (13:47)
[2020-08-29] MEDS: Insulin DETEMIR 100 UNIT/ML X5UNITS SUBQ SCH (19:50)
[2020-08-29] MEDS: Melatonin 3 MG TABLET PO PRN (19:50)
[2020-08-30] MEDS: Ipratropium 1 PUFF INHALER IH SCH ×7 (00:14→23:04)
[2020-08-30 02:50] LABS: Basophils % 0.1 %; Hematocrit 31.1 % (35.3-44.9); Hemoglobin 9.8 g/dL (11.5-15.4); Immature Granulocytes % 0.4 % (0-4); Lymphocytes # 0.8 K/mcL (0.6-4.6); Lymphocytes % 7.8 %; Mean Corpuscular HGB Conc 31.5 g/dL (31.6-35.5); Mean Corpuscular Hemoglobin 28.5 pg (28.0-33.3); Mean Corpuscular Volume 90.4 fL (83.0-100.0); Mean Platelet Volume 9.4 fL (9.4-12.4); Monocytes # 0.3 K/mcL (0.0-1.3); Neutrophils # 8.5 K/mcL (1.6-8.9); Platelet Count 274 K/mcL (140-400); Red Blood Count 3.44 M/mcL (3.82-4.97); Red Cell Distribution Width 17.2 % (11.5-14.5); Segmented Neutrophils % 88.7 %; White Blood Count 9.6 K/mcL (4.3-11.1)
[2020-08-30 03:00] LABS: BUN/Creatinine Ratio 42 (6-26); Blood Urea Nitrogen 45 mg/dL (8-23); Carbon Dioxide 29 mEq/L (23-29); Chloride 97 mEq/L (98-107); Glucose 272 mg/dL (70-105); Osmolality,Calculated 301 (280-300); Potassium 4.2 mEq/L (3.5-5.1); Sodium 135 mEq/L (136-145); eGFR For African Americans > 60 (> 60); eGFR For Non-African Americans 50 (> 60)
[2020-08-30] MEDS: Apixaban 5 MG TABLET PO SCH ×2 (05:34→17:21)
[2020-08-30] MEDS: Insulin LISPRO 300 UNITS/3 ML VIAL SUBQ SCH ×8 (09:09→19:47)
[2020-08-30] MEDS: Furosemide 40 MG TABLET PO SCH (09:10)
[2020-08-30] MEDS: Gabapentin 400 MG CAPSULE PO SCH ×3 (09:10→19:35)
[2020-08-30] MEDS: Cholecalciferol (D-3) 1,000 UNIT (25MCG) TABLET PO SCH (09:10)
[2020-08-30] MEDS: Multivit/Ca/Min/Fe/FA 1 TAB TABLET PO SCH (09:10)
[2020-08-30] MEDS: Propranolol LA (24 HR) 80 MG CAP.SA.24H PO SCH (09:10)
[2020-08-30] MEDS: Dexamethasone 4 MG/ML VIAL IVP SCH (09:11)
[2020-08-30] MEDS: polyethylene glycoL 3350 17 GM POWD.PACK PO SCH (09:12)
[2020-08-30] MEDS: Artificial Tears SOLN 15 ML BOTTLE BOTH EYES SCH ×2 (09:12→20:04)
[2020-08-30] MEDS ORDERED: Furosemide 40 MG/4 ML VIAL IVP STA (13:41)
[2020-08-30] MEDS: Melatonin 3 MG TABLET PO PRN (19:34)
[2020-08-30] MEDS: *HR* HYDROcodone/Acet 5/325 mg TABLET PO PRN (19:36)
[2020-08-30] MEDS: Insulin DETEMIR 100 UNIT/ML X5UNITS SUBQ SCH (19:47)
[2020-08-30] MEDS: Ondansetron 4 MG/2 ML VIAL IVP PRN (23:48)
[2020-08-31] MEDS: Ipratropium 1 PUFF INHALER IH SCH ×6 (04:12→22:43)
[2020-08-31 05:18] LABS: Eosinophils % 0.3 %; Hematocrit 33.2 % (35.3-44.9); Hemoglobin 10.4 g/dL (11.5-15.4); Immature Granulocytes % 0.4 % (0-4); Lymphocytes # 1.3 K/mcL (0.6-4.6); Lymphocytes % 11.9 %; Mean Corpuscular HGB Conc 31.3 g/dL (31.6-35.5); Mean Corpuscular Hemoglobin 28.9 pg (28.0-33.3); Mean Corpuscular Volume 92.2 fL (83.0-100.0); Mean Platelet Volume 9.7 fL (9.4-12.4); Monocytes # 0.7 K/mcL (0.0-1.3); Monocytes % 6.1 %; Neutrophils # 8.7 K/mcL (1.6-8.9); Platelet Count 298 K/mcL (140-400); Red Cell Distribution Width 17.5 % (11.5-14.5); Segmented Neutrophils % 81.3 %; White Blood Count 10.7 K/mcL (4.3-11.1)
[2020-08-31] MEDS: Apixaban 5 MG TABLET PO SCH ×2 (05:28→17:03)
[2020-08-31 05:35] LABS: BUN/Creatinine Ratio 49 (6-26); Blood Urea Nitrogen 49 mg/dL (8-23); Calcium 9.5 mg/dL (8.6-10.3); Carbon Dioxide 35 mEq/L (23-29); Chloride 98 mEq/L (98-107); Glucose 116 mg/dL (70-105); Osmolality,Calculated 304 (280-300); Sodium 140 mEq/L (136-145); eGFR For African Americans > 60 (> 60); eGFR For Non-African Americans 55 (> 60)
[2020-08-31] MEDS: Insulin LISPRO 300 UNITS/3 ML VIAL SUBQ SCH ×7 (07:40→19:36)
[2020-08-31] MEDS: Multivit/Ca/Min/Fe/FA 1 TAB TABLET PO SCH (07:54)
[2020-08-31] MEDS: Gabapentin 400 MG CAPSULE PO SCH ×3 (07:54→19:31)
[2020-08-31] MEDS: Dexamethasone 4 MG/ML VIAL IVP SCH (07:54)
[2020-08-31] MEDS: Furosemide 40 MG TABLET PO SCH (07:54)
[2020-08-31] MEDS: Cholecalciferol (D-3) 1,000 UNIT (25MCG) TABLET PO SCH (07:54)
[2020-08-31] MEDS: Propranolol LA (24 HR) 80 MG CAP.SA.24H PO SCH (07:54)
[2020-08-31] MEDS: Artificial Tears SOLN 15 ML BOTTLE BOTH EYES SCH ×2 (07:55→19:31)
[2020-08-31] MEDS: polyethylene glycoL 3350 17 GM POWD.PACK PO SCH ×2 (07:58→15:08)
[2020-08-31] MEDS: Furosemide 40 MG/4 ML VIAL IVP SCH (09:27)
[2020-08-31] MEDS: Melatonin 3 MG TABLET PO PRN (19:31)
[2020-08-31] MEDS: Insulin DETEMIR 100 UNIT/ML X5UNITS SUBQ SCH (20:07)
[2020-09-01] MEDS: *HR* HYDROcodone/Acet 5/325 mg TABLET PO PRN ×3 (00:04→20:42)
[2020-09-01 02:58] LABS: Eosinophils % 0.1 %; Hematocrit 30.8 % (35.3-44.9); Hemoglobin 9.8 g/dL (11.5-15.4); Immature Granulocytes % 0.5 % (0-4); Lymphocytes # 1.2 K/mcL (0.6-4.6); Lymphocytes % 11.7 %; Mean Corpuscular HGB Conc 31.8 g/dL (31.6-35.5); Mean Corpuscular Volume 91.1 fL (83.0-100.0); Mean Platelet Volume 9.6 fL (9.4-12.4); Monocytes # 0.7 K/mcL (0.0-1.3); Monocytes % 7.1 %; Platelet Count 287 K/mcL (140-400); Red Blood Count 3.38 M/mcL (3.82-4.97); Red Cell Distribution Width 17.6 % (11.5-14.5); Segmented Neutrophils % 80.6 %; White Blood Count 9.9 K/mcL (4.3-11.1)
[2020-09-01 03:17] LABS: BUN/Creatinine Ratio 48 (6-26); Blood Urea Nitrogen 51 mg/dL (8-23); Calcium 9.2 mg/dL (8.6-10.3); Carbon Dioxide 33 mEq/L (23-29); Chloride 96 mEq/L (98-107); Glucose 205 mg/dL (70-105); Osmolality,Calculated 304 (280-300); Potassium 3.8 mEq/L (3.5-5.1); Sodium 137 mEq/L (136-145); eGFR For African Americans > 60 (> 60); eGFR For Non-African Americans 50 (> 60)
[2020-09-01] MEDS: Ipratropium 1 PUFF INHALER IH SCH ×6 (04:17→22:52)
[2020-09-01] MEDS: Apixaban 5 MG TABLET PO SCH ×2 (05:29→17:19)
[2020-09-01] MEDS: Ondansetron 4 MG/2 ML VIAL IVP PRN (05:29)
[2020-09-01] MEDS: Insulin LISPRO 300 UNITS/3 ML VIAL SUBQ SCH ×7 (07:20→20:43)
[2020-09-01] MEDS: Gabapentin 400 MG CAPSULE PO SCH ×3 (09:42→20:42)
[2020-09-01] MEDS: Multivit/Ca/Min/Fe/FA 1 TAB TABLET PO SCH (09:42)
[2020-09-01] MEDS: Cholecalciferol (D-3) 1,000 UNIT (25MCG) TABLET PO SCH (09:42)
[2020-09-01] MEDS: Propranolol LA (24 HR) 80 MG CAP.SA.24H PO SCH (09:43)
[2020-09-01] MEDS: Furosemide 40 MG/4 ML VIAL IVP SCH (09:46)
[2020-09-01] MEDS: Artificial Tears SOLN 15 ML BOTTLE BOTH EYES SCH ×2 (09:47→20:43)
[2020-09-01] MEDS: Dexamethasone 4 MG/ML VIAL IVP SCH (09:47)
[2020-09-01] MEDS: polyethylene glycoL 3350 17 GM POWD.PACK PO SCH (09:48)
[2020-09-01] MEDS: Sennosides/Docusate Sodium TABLET PO SCH (14:34)
[2020-09-01] MEDS: Methyl Salicylate/Menthol 57 APPL/57 GM TUBE TP PRN (19:25)
[2020-09-01] MEDS: Melatonin 3 MG TABLET PO PRN (20:42)
[2020-09-01] MEDS: Insulin DETEMIR 100 UNIT/ML X5UNITS SUBQ SCH (20:42)
[2020-09-02] MEDS: Ipratropium 1 PUFF INHALER IH SCH ×5 (04:27→19:45)
[2020-09-02] MEDS: Apixaban 5 MG TABLET PO SCH ×2 (05:44→18:14)
[2020-09-02] MEDS: *HR* HYDROcodone/Acet 5/325 mg TABLET PO PRN ×2 (05:47→21:05)
[2020-09-02 06:05] LABS: Eosinophils % 0.1 %; Hematocrit 32.7 % (35.3-44.9); Hemoglobin 10.4 g/dL (11.5-15.4); Immature Granulocytes % 0.4 % (0-4); Lymphocytes # 1.1 K/mcL (0.6-4.6); Lymphocytes % 11.4 %; Mean Corpuscular HGB Conc 31.8 g/dL (31.6-35.5); Mean Corpuscular Hemoglobin 29.3 pg (28.0-33.3); Mean Corpuscular Volume 92.1 fL (83.0-100.0); Mean Platelet Volume 9.6 fL (9.4-12.4); Monocytes # 0.6 K/mcL (0.0-1.3); Monocytes % 6.2 %; Neutrophils # 7.9 K/mcL (1.6-8.9); Platelet Count 280 K/mcL (140-400); Red Blood Count 3.55 M/mcL (3.82-4.97); Red Cell Distribution Width 17.6 % (11.5-14.5); Segmented Neutrophils % 81.9 %; White Blood Count 9.6 K/mcL (4.3-11.1)
[2020-09-02 06:15] LABS: Fibrinogen 295 mg/dL (169-393)
[2020-09-02 06:16] LABS: D-Dimer 1263 ng/mLFEU (0-500)
[2020-09-02 06:24] LABS: BUN/Creatinine Ratio 53 (6-26); Blood Urea Nitrogen 52 mg/dL (8-23); Calcium 9.2 mg/dL (8.6-10.3); Carbon Dioxide 33 mEq/L (23-29); Chloride 95 mEq/L (98-107); Glucose 233 mg/dL (70-105); Osmolality,Calculated 302 (280-300); Potassium 4.2 mEq/L (3.5-5.1); Sodium 135 mEq/L (136-145); eGFR For African Americans > 60 (> 60); eGFR For Non-African Americans 56 (> 60)
[2020-09-02 06:25] LABS: Albumin 2.8 g/dL (3.5-5.7); Bilirubin,Direct 0.1 mg/dL (0.0-0.2); Bilirubin,Indirect 0.2 mg/dL (0.0-1.0); Bilirubin,Total 0.3 mg/dL (0.3-1.0); Globulin 2.8 g/dL (2.4-3.5); Total Protein 5.6 g/dL (6.4-8.9)
[2020-09-02] MEDS: Cholecalciferol (D-3) 1,000 UNIT (25MCG) TABLET PO SCH (09:08)
[2020-09-02] MEDS: Gabapentin 400 MG CAPSULE PO SCH ×3 (09:08→21:04)
[2020-09-02] MEDS: Sennosides/Docusate Sodium TABLET PO SCH (09:08)
[2020-09-02] MEDS: Dexamethasone 4 MG/ML VIAL IVP SCH (09:08)
[2020-09-02] MEDS: Multivit/Ca/Min/Fe/FA 1 TAB TABLET PO SCH (09:08)
[2020-09-02] MEDS: Propranolol LA (24 HR) 80 MG CAP.SA.24H PO SCH (09:08)
[2020-09-02] MEDS: Furosemide 40 MG/4 ML VIAL IVP SCH (09:09)
[2020-09-02] MEDS: Insulin LISPRO 300 UNITS/3 ML VIAL SUBQ SCH ×7 (09:11→21:03)
[2020-09-02] MEDS: Artificial Tears SOLN 15 ML BOTTLE BOTH EYES SCH ×2 (09:15→21:03)
[2020-09-02] MEDS: polyethylene glycoL 3350 17 GM POWD.PACK PO SCH (09:16)
[2020-09-02] MEDS: Ondansetron 4 MG/2 ML VIAL IVP PRN (19:35)
[2020-09-02] MEDS: Melatonin 3 MG TABLET PO PRN (21:04)
[2020-09-02] MEDS: Insulin DETEMIR 100 UNIT/ML X5UNITS SUBQ SCH (21:04)
[2020-09-03] MEDS: Ipratropium 1 PUFF INHALER IH SCH ×6 (00:24→20:01)
[2020-09-03] MEDS: Apixaban 5 MG TABLET PO SCH ×2 (06:10→17:11)
[2020-09-03] MEDS: Insulin LISPRO 300 UNITS/3 ML VIAL SUBQ SCH ×6 (07:32→17:10)
[2020-09-03] MEDS: Acetaminophen 325 MG TABLET PO PRN (07:38)
[2020-09-03] MEDS: Dexamethasone 4 MG/ML VIAL IVP SCH (07:38)
[2020-09-03] MEDS: Propranolol LA (24 HR) 80 MG CAP.SA.24H PO SCH (07:38)
[2020-09-03] MEDS: Cholecalciferol (D-3) 1,000 UNIT (25MCG) TABLET PO SCH (07:39)
[2020-09-03] MEDS: Furosemide 40 MG/4 ML VIAL IVP SCH (07:39)
[2020-09-03] MEDS: polyethylene glycoL 3350 17 GM POWD.PACK PO SCH (07:39)
[2020-09-03] MEDS: Gabapentin 400 MG CAPSULE PO SCH ×3 (07:39→20:00)
[2020-09-03] MEDS: Multivit/Ca/Min/Fe/FA 1 TAB TABLET PO SCH (07:39)
[2020-09-03] MEDS: Artificial Tears SOLN 15 ML BOTTLE BOTH EYES SCH (07:41)
[2020-09-03] MEDS: Sennosides/Docusate Sodium TABLET PO SCH (08:09)
[2020-09-03 08:21] LABS: Basophils % 0.1 %; Eosinophils # 0.1 K/mcL (0.0-0.6); Eosinophils % 0.5 %; Hematocrit 35.6 % (35.3-44.9); Hemoglobin 11.3 g/dL (11.5-15.4); Immature Granulocytes % 0.5 % (0-4); Lymphocytes # 1.5 K/mcL (0.6-4.6); Lymphocytes % 15.7 %; Mean Corpuscular HGB Conc 31.7 g/dL (31.6-35.5); Mean Corpuscular Hemoglobin 29.4 pg (28.0-33.3); Mean Corpuscular Volume 92.5 fL (83.0-100.0); Mean Platelet Volume 9.6 fL (9.4-12.4); Monocytes # 0.7 K/mcL (0.0-1.3); Monocytes % 7.4 %; Neutrophils # 7.2 K/mcL (1.6-8.9); Platelet Count 350 K/mcL (140-400); Red Blood Count 3.85 M/mcL (3.82-4.97); Red Cell Distribution Width 17.7 % (11.5-14.5); Segmented Neutrophils % 75.8 %; White Blood Count 9.5 K/mcL (4.3-11.1)
[2020-09-03 08:36] LABS: BUN/Creatinine Ratio 52 (6-26); Blood Urea Nitrogen 47 mg/dL (8-23); Calcium 9.9 mg/dL (8.6-10.3); Carbon Dioxide 35 mEq/L (23-29); Chloride 95 mEq/L (98-107); Glucose 143 mg/dL (70-105); Osmolality,Calculated 299 (280-300); Potassium 3.9 mEq/L (3.5-5.1); Sodium 137 mEq/L (136-145); eGFR For African Americans > 60 (> 60); eGFR For Non-African Americans > 60 (> 60)
[2020-09-03] MEDS: *HR* HYDROcodone/Acet 5/325 mg TABLET PO PRN (14:27)
[2020-09-03 19:19] VITALS: BP 123/68
[2020-09-03] MEDS: Insulin DETEMIR 100 UNIT/ML X5UNITS SUBQ SCH (20:01)
== END 2020-09-03 20:18 | DRG 177 ==
LOC: 2NENU → SUATTDRO 06:36 → 2NENU 08-16 09:12
PROVIDERS: ADMIT Internal Medicine; ATTEND Student in an Organized Health Care Education/Training Program